=== PATIENT | male | born 1965 | race African-American/Black ===

== ENCOUNTER 2021-08-22 10:14 | Observation (INO) ==
--- NOTE | 2021-08-22 11:07 | XRay Report ---
XR chest 1V portable CLINICAL HISTORY: SOB TECHNIQUE: Single frontal radiograph of the chest was obtained. Comparison: None available at the time of this dictation. FINDINGS: No lines and tubes are seen. The cardiomediastinal silhouette is normal. The lungs are clear. No evid ence of pleural effusion or pneumothorax. IMPRESSION: No acute chest disease. ACT 112: Negative or not required by law. Electronically signed by: Chase Thao M.D. 08/22/2021 11:06 AM
[2021-08-22 11:28] LABS: Basophils # (auto) 0.02 K/uL (0-0.2); Basophils % (auto) 0.2 %; Eosinophils # (auto) 0.05 K/uL (0-0.5); Eosinophils % (auto) 0.4 %; Hematocrit (blood only) 39.1 % (42-52); Hemoglobin 13.1 g/dL (14.0-18.0); Immature Granulocytes # (auto) 0.15 K/uL (0.00-0.02); Immature Granulocytes % (auto) 1.3 %; Lymphocytes # (auto) 1.29 K/uL (1.2-3.4); Lymphocytes % (auto) 11.4 %; Mean Corpuscular Hemoglobin 28.3 pg (25-34); Mean Corpuscular Hgb Conc 33.5 g/dL (32-36); Mean Corpuscular Volume 84.4 fL (80-100); Monocytes # (auto) 0.71 K/uL (0.11-0.59); Monocytes % (auto) 6.3 %; Neutrophils # (auto) 9.06 K/uL (1.4-6.5); Neutrophils % (auto) 80.4 %; Platelet Count 8 K/uL (130-400); Platelet Estimate SIGNIFIC DECREASED (Normal); RDW Coefficient of Variation 14.5 % (11.5-14.5); RDW Standard Deviation 44.4 fL (36.4-46.3); Red Blood Count 4.63 M/uL (4.7-6.1); White Blood Count 11.28 K/uL (4.8-10.8)
[2021-08-22 11:42] LABS: Albumin Globulin Ratio 1.4 (0.9-2); BUN Creatinine Ratio 15.6 (10-20); Bilirubin,Total 0.5 mg/dl (0.2-1.0); Calcium 8.9 mg/dl (8.5-10.1); Creatinine Clr Calc Pharmacy 114.3 ml/min; Est GFR (African American) 104.2 ml/min; Est GFR (Non-African American) 89.9 ml/min; Globulin 2.8 gm/dl (2.5-4.0); Total Protein 6.8 gm/dl (6.0-8.3)
[2021-08-22] MEDS ORDERED: dexAMETHasone 4 MG TAB PO ONE (11:50)
[2021-08-22] MEDS ORDERED: diphenhydrAMINE 50 MG/ML VIAL IV STA (11:55)
[2021-08-22] MEDS ORDERED: ACETAMINOPHEN 500 MG TAB PO STA (11:55)
[2021-08-22] MEDS ORDERED: IMMUN GLOBG(IGG)/MALT/IGA OV50 100 ML IV ONE (12:00)
--- NOTE | 2021-08-22 12:40 | History & Physical Report ---
Date of Service August 22, 2021 Assessment & Plan (1) Severe thrombocytopenia: (2) Drug-induced ITP: Plan: This is a 55yo M from [facility] with PMH of HTN, HLD, mood disorder who presents to ED with low platelet count in setting of suspected ITP following J&J Vaccine in June 2021. When seen in Dec with plt of 6, heme onc recommended dexamethasone 40 mg daily x 4 days, initial improvement to platelets noted Patient well until a few days ago with bleeding of tongue noted - started on prednisone with resolution of bleeding, repeat platelets low and sent to ED Platelets today of 8, no active bleeding, hemodynamically stable ED physician discussed with Dr. Wiley of [facility] onc - patient given 40mg Decadron and 1mg/kg Immune globulin with plans to continue daily Repeat CBC in AM Hematology consult Monitor closely for bleeding (3) HTN (hypertension): Plan: Continue amlodipine, lisinopril-hctz (4) HLD (hyperlipidemia): Plan: Continue statin (5) Bipolar disorder: Plan: Continue fluoxetine, Lamictal, aripiprazole HS, benztropine HS DVT Ppx: SCDs only given severe thrombocytopenia Code status: FULL PCP: GALLO Page Dispo: Admitted to PCU Patient seen in collaboration with Dr. Marks. Please see addendum. History of Present Illness Primary Care Provider: GALLO Shorener This is a 55yo M from [facility] with PMH of HTN, HLD, mood disorder who presents to ED with low platelet count. Was seen in late June in ED with platelet count of [address] Montgomery thought it likely to be ITP from recent J&J Vaccine. Recommended dexamethasone 40 mg daily x 4 days with daily CBCs with outpatient follow-up. Improvement of platelets initially noted on labwork and patient returned to nursing home. Patient started to feel worse again on Monday and noticed his tongue was bleeding. Was started on prednisone taper at [facility] and repeat CBC showed low platelet count again, so patient sent to [facility] for further evaluation. Patient denies continued bleeding from tongue or gums since Monday. No other bleeding noted and no new bruising/petechiae. No fever, chills, CP, SOB, N/V, abdominal pain, dysuria, diarrhea or constipation. Per ED physician's discussion with Dr. Wiley, patient given 40mg Decadron and 1mg/kg Immune globulin with plans to repeat platelet count in AM. Allergies Allergy/AdvReac Type Severity Reaction Status Date / Time sulfamethoxazole Allergy Unknown Unknown Verified 07/29/21 21:13 [From Bactrim] trimethoprim [From Bactrim] Allergy Unknown Unknown Verified 07/29/21 21:13 Home Medications Medication Instructions Recorded Confirmed Type amlodipine 10 mg tablet 10 mg PO DAILY 07/29/21 08/22/21 History aripiprazole 5 mg tablet 5 mg PO HS 07/29/21 08/22/21 History benztropine 1 mg tablet 1 mg PO HS 07/29/21 08/22/21 History fluoxetine 20 mg capsule 80 mg PO DAILY 07/29/21 08/22/21 History lamotrigine 100 mg tablet 200 mg PO DAILY 07/29/21 08/22/21 History (Lamictal) levalbuterol tartrate 45 2 inh INHALATION QID PRN 07/29/21 08/22/21 History mcg/actuation aerosol inhaler (Xopenex HFA) lisinopril 20 1 tab PO DAILY 07/29/21 08/22/21 History mg-hydrochlorothiazide 25 mg tablet rosuvastatin 20 mg tablet 20 mg PO HS 07/29/21 08/22/21 History acetaminophen 500 mg tablet 1,000 mg PO TID PRN 08/22/21 08/22/21 History (Acetaminophen Extra Strength) Past Med/Surg History Medical History Bipolar disorder HLD (hyperlipidemia) HTN (hypertension) Sarcoidosis Surgical History History of lung surgery Family History Other Diabetes Heart disease Social History (Updated 08/22/21 @ 13:41 by Yoko Shelby PA-C) Smoking Status: Never smoker Current Living Situation: Other Feels Safe at Home: Yes Review of Systems Review of Systems: At least ten systems reviewed and negative except as noted in the HPI. Physical Exam Physical Exam: General Appearance: WD/WN, vitals as above, NAD, lying in bed, pleasant, conversing easily Head: normocephalic, atraumatic Eyes: normal inspection, PERRL, conjunctivae normal, anicteric sclerae ENT: external ear and nose normal, oropharynx normal - no bleeding visualized Neck: normal visual inspection, trachea midline, no thyromegaly Respiratory: normal respiratory effort, lungs clear to auscultation, no wheeze, rales, rhonchi. No accessory muscle use Cardiovascular: regular rate, rhythm, no murmur, normal peripheral pulses, trace BLE edema. Vessels: no JVD Chest: normal inspection of chest Abdomen/GI: normal bowel sounds, soft, nontender, no hepatosplenomegaly Extremities/Musculoskeletal: no cyanosis or clubbing, extremities motor strength 5/5 Neurologic: PERRL, EOMI, accommodation nl, no face palsy, no dysarthria, CN's II-XI intact bilaterally and moves all extremities Psychiatric: A+Ox3, euthymic affect Skin: no rashes or petechiae noted. Small bruise on dorsum of L hand, normal color, warm/dry Results & Data Results & Data ([facility]) Vital Signs (Past 12 Hours) Vital Signs Temp Pulse Pulse Resp BP BP Pulse Ox 08/22/21 12:00 81 22 160/93 H 99 08/22/21 10:20 36.9 C 96 H 21 141/95 H 96 Laboratory Results Short CBC 08/22/21 Range/Units 10:45 WBC 11.28 H (4.8-10.8) K/uL Hgb 13.1 L (14.0-18.0) g/dL Hct 39.1 L (42-52) % Plt Count 8 L* (130-400) K/uL BMP 08/22/21 10:45 Sodium 135 L Potassium Chloride 100 Carbon Dioxide 28 BUN 15 Creatinine 0.96 Glucose 112 H Calcium 8.9 Liver Function 08/22/21 Range/Units 10:45 Total Bilirubin 0.5 (0.2-1.0) mg/dl AST (13-39) U/L ALT 46 (7-52) U/L Alkaline Phosphatase 89 (34-104) U/L Albumin 4.0 (3.4-5.0) gm/dl Diagnostic Findings Chest X-Ray 08/22/21 10:34 XR chest 1V portable CLINICAL HISTORY: SOB TECHNIQUE: Single frontal radiograph of the chest was obtained. Comparison: None available at the time of this dictation. FINDINGS: No lines and tubes are seen. The cardiomediastinal silhouette is normal. The lungs are clear. No evidence of pleural effusion or pneumothorax. IMPRESSION: No acute chest disease. ACT 112: Negative or not required by law. Electronically signed by: Chase Thao M.D. 08/22/2021 11:06 AM Code Status & VTE Plan VTE Prophylaxis Plan VTE Prophylaxis will be ordered: Yes Supervising Physician Co-Signing Physician Notes I saw this patient with the physician assistant offset press operator, I participated in the history, physical, review of systems, and physical exam. I reviewed the medications with the patient and the physician assistant offset press operator and helped reconcile the medications. I helped take a detailed family and social history as well. I formulated the assessment and plan personally with the physician assistant offset press operator and went over it with the patient. ROS-No Headache, No Visual Changes, No Nausea, No Vomiting, No Fever, No Chills, No Neck Pain or Stiffness, No Chest Pain, No Palpitations, No SOB, No HOLDER, No Cough, No Sputum, No Wheezing, No Abdominal Pain, No Diarrhea, No Hematemesis, No Hemoptysis, No Unexpected Weight Loss, No Flank pain, No Melena, No Hematochezia, No Frequency, No Urgency, No Burning, No Hematuria, No Rashes, No Diaphoresis. Appetite is Normal Physical Exam Gen-AAO x 3, NAD, Afebrile Head-NCAT, EOMI, PERRLA, Anicteric Sclera, No Posterior Pharyngeal Erythema Neck-Supple, No JVD, No Thyromegaly, No Masses, No LAD, No Bruits Lungs-Clear to Auscultation Bilaterally, No Rales, No Rhonchi, No Wheezing, No Crepitus Chest-No S4, +S1, +S2, No S3, No Murmurs, No Rubs, No Gallops, No Ectopy Abdomen-Soft, Bowel Sounds Present, Non Tender, Non Distended, No Hepatomegaly, No Splenomegaly, No Palpable Masses, No Rebound, No Rigidity, No Guarding Musculoskeletal-Full Range of Motion Bilaterally, No CVAT Extremities-No Cyanosis, No Clubbing, No Edema Nuero-Cranial Nerves II-XII grossly intact, Motor WNL, DTRs WNL, Strength WNL, Non Focal Psych-Normal Mood
[2021-08-22] MEDS: IMMUN GLOBG(IGG)/MALT/IGA OV50 200 ML IV SCH ×4 (14:04→23:11)
[2021-08-22] MEDS ORDERED: ACETAMINOPHEN 325 MG TAB PO PRN (15:16)
[2021-08-22] MEDS ORDERED: ONDANSETRON INJ 2 MG/ML 2 ML VIAL IV PRN (15:16)
[2021-08-22] MEDS ORDERED: POLYETHYLENE (MIRALAX) 17 GM PACK PO PRN (15:16)
--- NOTE | 2021-08-22 17:32 | Emergency Department Note ---
Impression & Plan Severe thrombocytopenia, History of ITP ED Provider Note CHIEF COMPLAINT: low plts HISTORY OF PRESENT ILLNESS: This 55 yo male patient [facility] with complaints of low platelets. Patient was recently diagnosed with thrombocytopenia and placed high-dose steroids. His initial platelet count was 6 and on repeat after high-dose dexamethasone was 61. [facility] of p.o. dexamethasone but is sent back to the emergency department today for a platelet count of 9. Patient states he has been bruising but has had no significant bleeding. In review of the patient's medication list he has been taking 40 mg of prednisone daily through their system. Patient states he had a Covid booster prior to the onset of the symptoms and it is unclear if this is related to the thrombocytopenia. He has never had issues with this previously. He denies any fevers, bleeding from the gums, rectal bleeding, vomiting, shortness of breath or chest discomfort. REVIEW OF SYSTEMS: A review of systems was performed with positives and pertinent negatives listed in the history of present illness. 10 systems were reviewed and are otherwise negative. ALLERGIES: see below MEDICATIONS: see below PMH: see below SOCIAL HISTORY: see below DDx: ITP, TTP, medication effect, viral illness, malignancy, amongst others. PHYSICAL EXAM: Vital signs reviewed. General: Well-appearing 55-year-old -[place] male, in no significant distress. HEENT: No scleral icterus, PERRLA, neck supple. Atraumatic. Cardiovascular: Regular rate and rhythm, no extra sounds. Pulmonary: Clear to auscultation bilaterally, normal work of breathing. Abdomen: Soft, nontender, nondistended, positive bowel sounds. Musculoskeletal: Atraumatic, no peripheral edema. Neurologic: Patient awake alert and oriented x 3, speech is clear Skin: Warm, dry, superficial areas of bruising to the extremities, otherwise no rash EMERGENCY DEPARTMENT COURSE/MDM: Patient was evaluated and appeared to be in no significant distress. IV access was obtained and laboratory work was drawn. Patient was confirmed to be thrombocytopenic. [facility] were [facility] indicating that the steroids have been switched from dexamethasone to prednisone at the 40 mg dosing. I did discuss the findings with oncology who had recommended giving the p.o. dexamethasone and weight-based IVIG. Pharmacy was consulted. Internal medicine service was also consulted who agreed to evaluate patient for admission and further management. Patient is aware of plan and agrees. MONITORING: An order for cardiac monitoring was placed and the patient is noted to be in a normal sinus rhythm at 93 beats per minute. RADIOLOGY: See below EKG: Normal sinus rhythm at 92 bpm. QTC of 420, normal axis, no PVC, no PAC, normal ST segments. No change was found when compared to 07/29/2021. DISPOSITION: Admission Past Med/Surg History Medical History Bipolar disorder HLD (hyperlipidemia) HTN (hypertension) Sarcoidosis Surgical History History of lung surgery Family History Other Diabetes Heart disease Social History Smoking Status: Never smoker Hx Alcohol Use: No Hx Substance Use: No Preferred Language: Micronesian Communication Ability: Effective Acid Treater Required: No Beliefs That Will Affect Care: None Current Living Situation: Other Feels Safe at Home: Yes Safety Concerns: Feels Safe At This Time Assistive Devices: None Allergies Allergies Allergy/AdvReac Type Severity Reaction Status Date / Time sulfamethoxazole Allergy Unknown Unknown Verified 07/29/21 21:13 [From Bactrim] trimethoprim [From Bactrim] Allergy Unknown Unknown Verified 07/29/21 21:13 Home Meds Home Medications Medication Instructions Recorded Confirmed amlodipine 10 mg tablet 10 mg PO DAILY 07/29/21 08/22/21 aripiprazole 5 mg tablet 5 mg PO HS 07/29/21 08/22/21 benztropine 1 mg tablet 1 mg PO HS 07/29/21 08/22/21 fluoxetine 20 mg capsule 80 mg PO DAILY 07/29/21 08/22/21 lamotrigine 100 mg tablet 200 mg PO DAILY 07/29/21 08/22/21 (Lamictal) levalbuterol tartrate 45 2 inh INHALATION QID PRN 07/29/21 08/22/21 mcg/actuation aerosol inhaler (Xopenex HFA) rosuvastatin 20 mg tablet 20 mg PO HS 07/29/21 08/22/21 acetaminophen 500 mg tablet 1,000 mg PO TID PRN 08/22/21 08/22/21 (Acetaminophen Extra Strength) Previous Rx's Medication Instructions Recorded amlodipine 5 mg tablet (Norvasc) 10 mg PO QAM #60 tab 08/24/21 dexamethasone 4 mg tablet 40 mg PO DAILY #3 tab 08/24/21 lisinopril 20 mg tablet 20 mg PO DAILY #30 tab 08/24/21 rosuvastatin 20 mg tablet (Crestor) 20 mg PO QAM #30 tab 08/24/21 Results & Data (ED) Vital Signs Vital Signs - 24 hr 08/22/21 10:20 08/22/21 12:00 Temperature 36.9 C Temperature Source Oral Pulse Rate 96 H Pulse Rate [Left Apical] 81 Pulse Rhythm Regular Pulse Rhythm [Left Apical] Regular Pulse Strength Normal Pulse Strength [Left Apical] Normal Respiratory Rate 21 22 Respiratory Effort / Characteristics Non-Labored Spontaneous Non-Labored Spontaneous Respiratory Depth Normal Normal Respiratory Pattern Regular Regular Blood Pressure 141/95 H Blood Pressure [Left Arm] 160/93 H Blood Pressure Mean 110 Blood Pressure Mean [Left Arm] 115 Blood Pressure Position Lying Blood Pressure Position [Left Arm] Lying Pulse Oximetry 96 99 Oxygen Delivery Method Room Air Room Air Sepsis Recent Fever Within 48 Hours No Sepsis New/Unexplained Change in Mental Status N/A Sepsis Action Taken by Nursing No Action Required Home Medications Current Medication List: was personally reviewed by me Laboratory Data Attestation: I reviewed the patient's lab results. Result diagrams: 08/24/21 06:14 08/24/21 06:14 Lab Results 08/22/21 08/22/21 08/22/21 Range/Units 10:45 10:45 10:45 WBC 11.28 H (4.8-10.8) K/uL RBC 4.63 L (4.7-6.1) M/uL Hgb 13.1 L (14.0-18.0) g/dL Hct 39.1 L (42-52) % MCV 84.4 (80-100) fL MCH 28.3 (25-34) pg MCHC 33.5 (32-36) g/dL RDW Std Deviation 44.4 (36.4-46.3) fL RDW Coeff of Dianelys 14.5 (11.5-14.5) % Plt Count 8 L* (130-400) K/uL Immature Gran % (Auto) 1.3 % Neut % (Auto) 80.4 % Lymph % (Auto) 11.4 % [place] % (Auto) 6.3 % Eos % (Auto) 0.4 % Baso % (Auto) 0.2 % Neut # (Auto) 9.06 H (1.4-6.5) K/uL Lymph # (Auto) 1.29 (1.2-3.4) K/uL [place] # (Auto) 0.71 H (0.11-0.59) K/uL Eos # (Auto) 0.05 (0-0.5) K/uL Baso # (Auto) 0.02 (0-0.2) K/uL Immature Gran # (Auto) 0.15 H (0.00-0.02) K/uL Platelet Estimate SIGNIFIC DECREASED (Normal) Sodium 135 L (136-145) mmol/L Potassium (3.5-5.1) mmol/L Chloride 100 (98-107) mmol/L Carbon Dioxide 28 (21-32) mmol/L Anion Gap 7 (3-11) BUN 15 (6-23) mg/dl Creatinine 0.96 (0.6-1.4) mg/dl Est Cr Clr Drug Dosing 114.3 ml/min Est GFR ( Amer) 104.2 ml/min Est GFR (Non-Af Amer) 89.9 ml/min BUN/Creatinine Ratio 15.6 (10-20) Glucose 112 H (70-99(Fasting)) mg/dl Calcium 8.9 (8.5-10.1) mg/dl Total Bilirubin 0.5 (0.2-1.0) mg/dl AST (13-39) U/L ALT 46 (7-52) U/L Alkaline Phosphatase 89 (34-104) U/L Total Protein 6.8 (6.0-8.3) gm/dl Albumin 4.0 (3.4-5.0) gm/dl Globulin 2.8 (2.5-4.0) gm/dl Albumin/Globulin Ratio 1.4 (0.9-2) SARS-CoV-2, RNA, NAAT NEGATIVE (NEGATIVE) Blood Type Antibody Screen 08/22/21 08/22/21 Range/Units 11:13 11:59 WBC (4.8-10.8) K/uL RBC (4.7-6.1) M/uL Hgb (14.0-18.0) g/dL Hct (42-52) % MCV (80-100) fL MCH (25-34) pg MCHC (32-36) g/dL RDW Std Deviation (36.4-46.3) fL RDW Coeff of Dianelys (11.5-14.5) % Plt Count (130-400) K/uL Immature Gran % (Auto) % Neut % (Auto) % Lymph % (Auto) % [place] % (Auto) % Eos % (Auto) % Baso % (Auto) % Neut # (Auto) (1.4-6.5) K/uL Lymph # (Auto) (1.2-3.4) K/uL [place] # (Auto) (0.11-0.59) K/uL Eos # (Auto) (0-0.5) K/uL Baso # (Auto) (0-0.2) K/uL Immature Gran # (Auto) (0.00-0.02) K/uL Platelet Estimate (Normal) Sodium (136-145) mmol/L Potassium 5.0 (3.5-5.1) mmol/L Chloride (98-107) mmol/L Carbon Dioxide (21-32) mmol/L Anion Gap (3-11) BUN (6-23) mg/dl Creatinine (0.6-1.4) mg/dl Est Cr Clr Drug Dosing ml/min Est GFR ( Amer) ml/min Est GFR (Non-Af Amer) ml/min BUN/Creatinine Ratio (10-20) Glucose (70-99(Fasting)) mg/dl Calcium (8.5-10.1) mg/dl Total Bilirubin (0.2-1.0) mg/dl AST 21 (13-39) U/L ALT (7-52) U/L Alkaline Phosphatase (34-104) U/L Total Protein (6.0-8.3) gm/dl Albumin (3.4-5.0) gm/dl Globulin (2.5-4.0) gm/dl Albumin/Globulin Ratio (0.9-2) SARS-CoV-2, RNA, NAAT (NEGATIVE) Blood Type A Negative Antibody Screen NEGATIVE Administered Medications Discontinued Medications Acetaminophen (Acetaminophen 500 Mg Tab) 1,000 mg PO NOW STA Stop: 08/22/21 11:56 Last Admin: 08/22/21 12:17 Dose: 1,000 mg Documented by: [id number] Acetaminophen (Acetaminophen 325 Mg Tab) 650 mg PO Q4H PRN PRN Reason: Pain or Fever Stop: 09/21/21 15:15 Last Admin: 08/24/21 06:31 Dose: 650 mg Documented by: [id number] Amlodipine Besylate (Amlodipine Besylate 5 Mg Tab) 10 mg PO [facility] Stop: 09/22/21 10:29 Last Admin: 08/24/21 08:10 Dose: 10 mg Documented by: [id number] Admin: 08/23/21 11:30 Dose: 10 mg Documented by: [id number] Aripiprazole (Aripiprazole 5 Mg Tab) 5 mg PO [facility] Stop: 09/22/21 10:29 Last Admin: 08/24/21 08:09 Dose: Not Given Documented by: [id number] Admin: 08/23/21 11:30 Dose: Not Given Documented by: [id number] Benztropine Mesylate (Benztropine Mesylate 1 Mg Tab) 1 mg PO [facility] Stop: 09/22/21 20:59 Last Admin: 08/23/21 21:01 Dose: 1 mg Documented by: [id number] Dexamethasone (Dexamethasone 4 Mg Tab) 40 mg PO NOW ONE Stop: 08/22/21 11:51 Last Admin: 08/22/21 12:17 Dose: 40 mg Documented by: [id number] Dexamethasone (Dexamethasone 4 Mg Tab) 40 mg PO DAILY [facility] Stop: 09/22/21 08:59 Last Admin: 08/24/21 08:10 Dose: 40 mg Documented by: [id number] Admin: 08/23/21 08:59 Dose: 40 mg Documented by: [id number] Diphenhydramine HCl (Diphenhydramine 50 Mg/Ml Vial) 25 mg IV NOW STA Stop: 08/22/21 11:56 Last Admin: 08/22/21 12:17 Dose: 25 mg Documented by: [id number] Fluoxetine HCl (Fluoxetine Hcl 20 Mg/5 Ml Udp) [facility] Stop: 09/22/21 10:29 Last Admin: 08/23/21 18:26 Dose: Not Given Documented by: [id number] Fluoxetine HCl (Fluoxetine Hcl 20 Mg/5 Ml 120ml Btl) [facility] Stop: 09/22/21 10:44 Last Admin: 08/24/21 08:14 Dose: 80 mg Documented by: [id number] Admin: 08/23/21 11:30 Dose: 80 mg Documented by: [id number] Lisinopril/HCTZ (Lisinopril/Hctz 10/12.5mg Tab) 1 tab PO QAM SIRIA Stop: 09/22/21 10:29 Last Admin: 08/24/21 08:11 Dose: 1 tab Documented by: [id number] Admin: 08/23/21 11:31 Dose: 1 tab Documented by: [id number] Immune Globulin (Octagam 10%) 200 mls @ 68.4 mls/hr IV Q1H SIRIA; Protocol Stop: 08/22/21 17:59 Last Titration: 08/23/21 04:04 Dose: 0 mg/kg/min, 0 mls/hr Documented by: [id number] Admin: 08/23/21 02:01 Dose: 1.46 mg/kg/min, 100 mls/hr Documented by: [id number] Titration: 08/23/21 01:11 Dose: 1.46 mg/kg/min, 100 mls/hr Documented by: [id number] Admin: 08/22/21 23:11 Dose: 1.46 mg/kg/min, 100 mls/hr Documented by: [id number] Titration: 08/22/21 23:11 Dose: 0 mg/kg/min, 0 mls/hr Documented by: [id number] Admin: 08/22/21 19:48 Dose: 1.46 mg/kg/min, 100 mls/hr Documented by: [id number] Titration: 08/22/21 19:47 Dose: 0 mg/kg/min, 0 mls/hr Documented by: [id number] Admin: 08/22/21 16:27 Dose: 1.46 mg/kg/min, 100 mls/hr Documented by: [id number] Titration: 08/22/21 16:04 Dose: 1.46 mg/kg/min, 100 mls/hr Documented by: [id number] Admin: 08/22/21 14:04 Dose: 1.46 mg/kg/min, 100 mls/hr Documented by: [id number] Immune Globulin (Octagam 10%) 100 mls @ 68.4 mls/hr IV NOW ONE; Protocol Stop: 08/22/21 13:27 Last Titration: 08/22/21 14:05 Dose: 0 mg/kg/min, 0 mls/hr Documented by: [id number] Admin: 08/22/21 12:53 Dose: 1 mg/kg/min, 68.4 mls/hr Documented by: [id number] Immune Globulin (Octagam 10%) 100 mls @ 65.4 mls/hr IV TODAY@1600 SIRIA; Protocol Stop: 08/23/21 17:32 Last Titration: 08/23/21 18:26 Dose: 0 mg/kg/min, 0 mls/hr Documented by: [id number] Admin: 08/23/21 16:39 Dose: 1 mg/kg/min, 65.4 mls/hr Documented by: [id number] Immune Globulin (Octagam 10%) 200 mls @ 65.4 mls/hr IV Q1H SIRIA; Protocol Stop: 08/23/21 21:59 Last Titration: 08/23/21 23:29 Dose: 0 mg/kg/min, 0 mls/hr Documented by: [id number] Admin: 08/23/21 22:30 Dose: 3.82 mg/kg/min, 250 mls/hr Documented by: [id number] Titration: 08/23/21 21:48 Dose: 3.82 mg/kg/min, 250 mls/hr Documented by: [id number] Admin: 08/23/21 21:00 Dose: 3.82 mg/kg/min, 250 mls/hr Documented by: [id number] Titration: 08/23/21 20:29 Dose: 0 mg/kg/min, 0 mls/hr Documented by: [id number] Admin: 08/23/21 19:40 Dose: 3.82 mg/kg/min, 250 mls/hr Documented by: [id number] Titration: 08/23/21 19:20 Dose: 0 mg/kg/min, 0 mls/hr Documented by: [id number] Admin: 08/23/21 18:30 Dose: 3.82 mg/kg/min, 250 mls/hr Documented by: [id number] Titration: 08/23/21 18:30 Dose: 1 mg/kg/min, 65.4 mls/hr Documented by: [id number] Admin: 08/23/21 17:15 Dose: 1 mg/kg/min, 65.4 mls/hr Documented by: [id number] Lamotrigine (Lamotrigine 100 Mg Tab) 200 mg PO [facility] Stop: 09/22/21 10:29 Last Admin: 08/24/21 08:12 Dose: 200 mg Documented by: [id number] Admin: 08/23/21 11:30 Dose: 200 mg Documented by: [id number] Rosuvastatin Calcium (Rosuvastatin Calcium 20 Mg Tab) 20 mg PO [facility] Stop: 09/22/21 10:29 Last Admin: 08/24/21 08:11 Dose: 20 mg Documented by: [id number] Admin: 08/23/21 11:31 Dose: 20 mg Documented by: [id number] Imaging Data Radiologist's Impression: Chest X-Ray 08/22/21 10:34 XR chest 1V portable CLINICAL HISTORY: SOB TECHNIQUE: Single frontal radiograph of the chest was obtained. Comparison: None available at the time of this dictation. FINDINGS: No lines and tubes are seen. The cardiomediastinal silhouette is normal. The lungs are clear. No evidence of pleural effusion or pneumothorax. IMPRESSION: No acute chest disease. ACT 112: Negative or not required by law. Electronically signed by: Chase Thao M.D. 08/22/2021 11:06 AM Blood Pressure Blood Pressure Findings: Elevated blood pressure Blood Pressure Disposition: further management by hospitalist Discharge Plan Visit Data Chief Complaint: Abnormal Labs/Diagnostic Testing Stated Complaint: ABNORMAL LABS ED Provider: Ely Sr Discharge Problem: Severe thrombocytopenia, History of ITP Patient Disposition: Admitted As Inpatient Condition: Good Discharge Instructions Interventions: ED Discharge Assessment Last Done: 08/22/21 15:28
[2021-08-23] MEDS: IMMUN GLOBG(IGG)/MALT/IGA OV50 200 ML IV SCH ×6 (02:01→22:30)
[2021-08-23 07:29] LABS: Hematocrit (blood only) 39.4 % (42-52); Hemoglobin 13.1 g/dL (14.0-18.0); Mean Corpuscular Hemoglobin 28.2 pg (25-34); Mean Corpuscular Hgb Conc 33.2 g/dL (32-36); Mean Corpuscular Volume 84.7 fL (80-100); Mean Platelet Volume 10.9 fL (7.4-10.4); Platelet Count 62 K/uL (130-400); Platelet Estimate Decreased (Normal); RDW Coefficient of Variation 14.5 % (11.5-14.5); RDW Standard Deviation 44.8 fL (36.4-46.3); Red Blood Count 4.65 M/uL (4.7-6.1); White Blood Count 13.91 K/uL (4.8-10.8)
[2021-08-23 07:33] LABS: BUN Creatinine Ratio 23.3 (10-20); Calcium 8.5 mg/dl (8.5-10.1); Creatinine Clr Calc Pharmacy 119.2 ml/min; Est GFR (African American) 112.6 ml/min; Est GFR (Non-African American) 97.2 ml/min; Potassium 4.2 mmol/L (3.5-5.1)
[2021-08-23] MEDS: dexAMETHasone 4 MG TAB PO SCH (08:59)
--- NOTE | 2021-08-23 10:05 | Hospitalist Progress Note ---
Date of Service August 23, 2021 Assessment & Plan (1) Severe thrombocytopenia: (2) Drug-induced ITP: Plan: This is a 55yo M from [place] [facility] with PMH of HTN, HLD, mood disorder who presents to ED with low platelet count in setting of suspected ITP following J&J Vaccine in June 2021. When seen in Dec with plt of 6, [facility] onc recommended dexamethasone 40 mg daily x 4 days, initial improvement to platelets noted Patient well until a few days ago with bleeding of tongue noted - started on prednisone with resolution of bleeding, repeat platelets low and sent to ED Platelets today of 8, no active bleeding, hemodynamically stable ED physician discussed with Dr. Wiley of [facility] onc - patient given 40mg Decadron and 1mg/kg Immune globulin, continue daily Hematology consult Monitor closely for bleeding (3) HTN (hypertension): Plan: Continue amlodipine, lisinopril-hctz (4) HLD (hyperlipidemia): Plan: Continue statin (5) Bipolar disorder: Plan: Continue fluoxetine, Lamictal, aripiprazole HS, benztropine HS DVT Ppx: SCDs only given severe thrombocytopenia Code status: FULL PCP: [facility] Page Dispo: Admitted to PCU ROS-No Headache, No Visual Changes, No Nausea, No Vomiting, No Fever, No Chills, No Neck Pain or Stiffness, No Chest Pain, No Palpitations, No SOB, No HOLDER, No Cough, No Sputum, No Wheezing, No Abdominal Pain, No Diarrhea, No Hematemesis, No Hemoptysis, No Unexpected Weight Loss, No Flank pain, No Melena, No Hematochezia, No Frequency, No Urgency, No Burning, No Hematuria, No Rashes, No Diaphoresis. Appetite is Normal Physical Exam Gen-AAO x 3, NAD, Afebrile Head-NCAT, EOMI, PERRLA, Anicteric Sclera, No Posterior Pharyngeal Erythema Neck-Supple, No JVD, No Thyromegaly, No Masses, No LAD, No Bruits Lungs-Clear to Auscultation Bilaterally, No Rales, No Rhonchi, No Wheezing, No Crepitus Chest-No S4, +S1, +S2, No S3, No Murmurs, No Rubs, No Gallops, No Ectopy Abdomen-Soft, Bowel Sounds Present, Non Tender, Non Distended, No Hepatomegaly, No Splenomegaly, No Palpable Masses, No Rebound, No Rigidity, No Guarding Musculoskeletal-Full Range of Motion Bilaterally, No CVAT Extremities-No Cyanosis, No Clubbing, No Edema Nuero-Cranial Nerves II-XII grossly intact, Motor WNL, DTRs WNL, Strength WNL, Non Focal Psych-Normal Mood. Admission and Anticipated Discharge Date Admission Date: August 22, 2021 Results & Data Results & Data ([facility]) Vital Signs (Past 12 Hours) Vital Signs Temp Pulse Pulse Resp BP Pulse Ox 08/23/21 08:05 36.7 C 94 H 16 166/89 H 97 08/23/21 04:01 36.6 C 86 18 150/86 H 97 08/22/21 23:49 36.4 C L 74 18 153/96 H 98 08/22/21 23:31 80 Laboratory Results Reviewed
[2021-08-23] MEDS: FLUoxetine HCL 20 MG/5 ML 120ML BTL PO SCH (11:30)
[2021-08-23] MEDS: amLODIPine BESYLATE 5 MG TAB PO SCH (11:30)
[2021-08-23] MEDS: lamoTRIgine 100 MG TAB PO SCH (11:30)
[2021-08-23] MEDS: ARIPiprazole 5 MG TAB PO SCH (11:30)
[2021-08-23] MEDS: LISINOPRIL/HCTZ 10/12.5MG TAB PO SCH (11:31)
[2021-08-23] MEDS: ROSUVASTATIN CALCIUM 20 MG TAB PO SCH (11:31)
[2021-08-23] MEDS ORDERED: IMMUNE GLOBULIN (HUMAN) SOLN IV ONE (14:20)
[2021-08-23] MEDS ORDERED: IMMUN GLOBG(IGG)/MALT/IGA OV50 100 ML IV SCH ×2 (15:00→16:00)
--- NOTE | 2021-08-23 15:08 | Consultation Report ---
HEMATOLOGY CONSULTATION DATE OF SERVICE: 08/23/2021. REASON FOR CONSULTATION: ITP. HISTORY OF PRESENT ILLNESS: This very pleasant 55-year-old -[place] skilled nursing inmate from [place] was admitted to [facility] on 08/22/2021 with platelet count of 8000. This g entleman was in our emergency room on basically for the same issue. The ER doctor had a telephone consulted us and recommended the gentleman receive high-dose dexamethasone, which was ad ministered. Apparently response was transient and thus was readmitted after he presented with scatte red ecchymosis and petechiae. Specifically on the Monday before admission noticed his tongue was blee ding, was started on prednisone taper at [facility] and repeat CBC revealed platelet count of 6000 . He was then subsequently transferred to our emergency room where platelet count had risen to 8000. The ER physician contacted my partner, Dr. Wiley who recommended daily dexamethasone and IVIG. His platelet count has responded nicely [id number]. The patient himself is anxious to return to skilled nursing and o ffers no complaints or concerns otherwise. He has a few scattered small ecchymoses that he showed me during today's consultation. PAST MEDICAL HISTORY: Significant for bipolar disorder, hyperlipidemia, hypertension, and sarcoidosi s. PAST SURGICAL HISTORY: Includes pulmonary surgery. MEDICATIONS: Include amlodipine 10 mg p.o. daily, aripiprazole 5 mg p.o. at bedtime, benztropine 1 m g p.o. at bedtime, fluoxetine 80 mg p.o. daily, Lamictal 200 mg p.o. daily, levalbuterol tartrate 2 i nhalations q.i.d. p.r.n., lisinopril/hydrochlorothiazide 1 tablet p.o. daily, rosuvastatin 20 mg p.o. daily. ALLERGIES: BACTRIM. SOCIAL HISTORY: The patient is a skilled nursing inmate at [facility]. He is a nonsmoker. FAMILY HISTORY: Positive for diabetes and heart disease. REVIEW OF SYSTEMS: All systems negative as stated in the HPI. PHYSICAL EXAMINATION: GENERAL: Very pleasant 55-year-old -[place] gentleman in no acute distress. VITAL SIGNS: Temperature 36.6, pulse 93, respiratory rate 18, blood pressure 154/82. SKIN: Warm, dry, noncyanotic. He has got a few scattered ecchymoses, mainly involving his upper ext remities. HEENT: Atraumatic, normocephalic. Eyes: PERRLA. Nares patent without rhinorrhea or discharge. Th roat clear. Tongue is midline. Mucous membranes are moist. NECK: Supple. HEART: Regular rate and rhythm. No clicks, rubs, murmurs or gallops. LUNGS: Clear to auscultation bilaterally. ABDOMEN: Soft, nontender, nondistended. EXTREMITIES: No clubbing, cyanosis or edema. NEUROLOGIC: He is awake, alert and oriented x3. Grossly intact otherwise. LABORATORY DATA: WBC count 13,910, hemoglobin 13.1, platelet count 62,000. IMPRESSION: 1. Idiopathic thrombocytopenic purpura. 2. Hypertension by history. 3. Bipolar disorder. PLAN: I have been asked by the [facility] to consult on the patient and low platelets. C kodyly, he has transiently responded to high-dose dexamethasone be it brief as he re-presented roughl y 3 weeks later with a relapsed ITP. Platelet count 8000 on presentation. I agree with Dr. Wiley's recommendations to proceed with high-dose dexamethasone 40 mg p.o. daily for 4 days. I also asked Dr Marisa Marks to order an additional dose of IVIG to provide before discharge. I would like the patient to be scheduled for either myself or Dr. Wiley for followup in three to four weeks post-discharge. ITP in adults is generally refractory and perhaps he may require either oral thrombopoietin agents or rituximab in the future should he relapse. Seems to be tolerating therapy reasonably well and thus do not anticipate any issues. I am cautiously optimistic platelet count is 62,000, should be over 100 ,000 if he continues to respond in the next 24 hours. Thank you very much for allowing me to participate in his care. If you have any questions or concern s, please feel free to contact me at any time. Job ID: [id number]
[2021-08-23] MEDS ORDERED: IMMUN GLOBG(IGG)/MALT/IGA OV50 200 ML IV SCH (16:00)
--- NOTE | 2021-08-23 16:10 | Electrocardiogram Report ---
Test Reason : Blood Pressure : / mmHG Vent. Rate : 092 BPM Atrial Rate : 092 BPM P-R Int : 162 ms QRS Dur : 076 ms QT Int : 340 ms P-R-T Axes : 036 -17 014 degrees QTc Int : 420 ms Poor data quality, interpretation may be adversely affected Normal sinus rhythm Minimal voltage criteria for LVH, may be normal variant Borderline ECG When compared with ECG of 29-JUL-2021 21:00, No significant change was found Confirmed by Aime Mittal ([id number]) on 08/23/2021 4:09:49 PM Referred By: Kaylee HOLDER Confirmed By:Jason Mittal
[2021-08-23] MEDS ORDERED: BENZTROPINE MESYLATE 1 MG TAB PO SCH (21:00)
[2021-08-24 07:03] LABS: Hematocrit (blood only) 37.4 % (42-52); Hemoglobin 12.6 g/dL (14.0-18.0); Mean Corpuscular Hemoglobin 28.4 pg (25-34); Mean Corpuscular Hgb Conc 33.7 g/dL (32-36); Mean Corpuscular Volume 84.2 fL (80-100); Mean Platelet Volume 9.7 fL (7.4-10.4); Platelet Count 149 K/uL (130-400); RDW Coefficient of Variation 14.7 % (11.5-14.5); RDW Standard Deviation 45.6 fL (36.4-46.3); Red Blood Count 4.44 M/uL (4.7-6.1)
[2021-08-24 07:16] LABS: BUN Creatinine Ratio 28.4 (10-20); Calcium 8.9 mg/dl (8.5-10.1); Creatinine Clr Calc Pharmacy 120.4 ml/min; Est GFR (African American) 113.7 ml/min; Est GFR (Non-African American) 98.1 ml/min; Potassium 4.8 mmol/L (3.5-5.1)
[2021-08-24 07:27] LABS: Basophils # (auto) 0.01 K/uL (0-0.2); Basophils % (auto) 0.1 %; Immature Granulocytes # (auto) 0.13 K/uL (0.00-0.02); Immature Granulocytes % (auto) 0.7 %; Lymphocytes # (auto) 0.62 K/uL (1.2-3.4); Lymphocytes % (auto) 3.4 %; Monocytes # (auto) 0.97 K/uL (0.11-0.59); Monocytes % (auto) 5.3 %; Neutrophils # (auto) 16.57 K/uL (1.4-6.5); Neutrophils % (auto) 90.5 %; Platelet Estimate Decreased (Normal); Polychromasia 1+; Toxic Granulation 1+; Toxic Vacuolation 1+
[2021-08-24] MEDS: ARIPiprazole 5 MG TAB PO SCH (08:09)
[2021-08-24] MEDS: dexAMETHasone 4 MG TAB PO SCH (08:10)
[2021-08-24] MEDS: amLODIPine BESYLATE 5 MG TAB PO SCH (08:10)
[2021-08-24] MEDS: ROSUVASTATIN CALCIUM 20 MG TAB PO SCH (08:11)
[2021-08-24] MEDS: LISINOPRIL/HCTZ 10/12.5MG TAB PO SCH (08:11)
[2021-08-24] MEDS: lamoTRIgine 100 MG TAB PO SCH (08:12)
[2021-08-24] MEDS: FLUoxetine HCL 20 MG/5 ML 120ML BTL PO SCH (08:14)
--- NOTE | 2021-08-24 10:28 | Discharge Summary ---
Date of Service August 24, 2021 Admission HPI Per Admitting Provider This is a 55yo M from [facility] [place] with PMH of HTN, HLD, mood disorder who presents to ED with low platelet count. Was seen in late June in ED with platelet count of [address] Montgomery thought it likely to be ITP from recent J&J Vaccine. Recommended dexamethasone 40 mg daily x 4 days with daily CBCs with outpatient follow-up. Improvement of platelets initially noted on labwork and patient returned to residential. Patient started to feel worse again on Monday and noticed his tongue was bleeding. Was started on prednisone taper at [facility] and repeat CBC showed low platelet count again, so patient sent to [facility] for fu rther evaluation. Patient denies continued bleeding from tongue or gums since Monday. No other bleeding noted and no new bruising/petechiae. No fever, chills, CP, SOB, N/V, abdominal pain, dysuria, diarrhea or constipation. Per ED physician's discussion with Dr. Wiley, patient given 40mg Decadron and 1mg/kg Immune globulin with plans to repeat platelet count in AM. Admission Exam Per Admitting Provider General Appearance:WD/WN, vitals as above, NAD, lying in bed, pleasant, conversing easily Head: normocephalic, atraumatic Eyes:normal inspection, PERRL, conjunctivae normal, anicteric sclerae ENT: external ear and nose normal, oropharynx normal - no bleeding visualized Neck: normal visual inspection, trachea midline, no thyromegaly Respiratory:normal respiratory effort, lungs clear to auscultation, no wheeze, rales, rhonchi. No accessory muscle use Cardiovascular: regular rate, rhythm, no murmur, normal peripheral pulses, trace BLE edema. Vessels: no JVD Chest: normal inspection of chest Abdomen/GI: normal bowel sounds, soft, nontender, no hepatosplenomegaly Extremities/Musculoskeletal: no cyanosis or clubbing, extremities motor strength 5/5 Neurologic: PERRL, EOMI, accommodation nl, no face palsy, no dysarthria, CN's II-XI intact bilaterally and moves all extremities Psychiatric:A+Ox3, euthymic affect Skin: no rashes or petechiae noted. Small bruise on dorsum of L hand, normal color, warm/dry Principal Diagnosis (1) Severe thrombocytopenia: (2) Drug-induced ITP: (3) HTN (hypertension): (4) HLD (hyperlipidemia): (5) Bipolar disorder: Discharge Exam See below Discharge Data Allergies Allergy/AdvReac Type Severity Reaction Status Date / Time sulfamethoxazole Allergy Unknown Unknown Verified 07/29/21 21:13 [From Bactrim] trimethoprim [From Bactrim] Allergy Unknown Unknown Verified 07/29/21 21:13 Consultations 08/22/21 12:15 ED Decision to Admit Stat 08/22/21 12:46 Consult Hematology Routine Current Diagnoses Other secondary thrombocytopenia (08/22/21) Thrombocytopenia, unspecified (08/22/21) Hyperlipidemia, unspecified (08/22/21) Bipolar disorder, unspecified (08/22/21) Essential (primary) hypertension (08/22/21) Adverse effect of unspecified drugs, medicaments and biological substances, initial encounter (08/22/21) Allergies sulfamethoxazole [From Bactrim] Allergy (Unknown, Verified 07/29/21 21:13) Unknown trimethoprim [From Bactrim] Allergy (Unknown, Verified 07/29/21 21:13) Unknown Height/Weight/Isolation Height 5 ft 11 in Weight 106.3 kg Chemistry 08/22/21 08/22/21 08/23/21 10:45 11:59 06:45 Sodium 135 L 131 L Potassium 5.0 4.2 Chloride 100 97 L Carbon Dioxide 28 28 Anion Gap 7 6 BUN 15 21 Creatinine 0.96 0.90 Glucose 112 H 118 H 08/24/21 06:14 Sodium 129 L Potassium 4.8 Chloride 98 Carbon Dioxide 28 Anion Gap 3 BUN 25 H Creatinine 0.88 Glucose 114 H Hospital Course (1) Severe thrombocytopenia: (2) Drug-induced ITP: This is a 55yo M from [facility] with PMH of HTN, HLD, mood disorder who presents to ED with low platelet count in setting of suspected ITP following J&J Vaccine in June 2021. When seen in Dec with plt of 6, heme onc recommended dexamethasone 40 mg daily x 4 days, initial improvement to platelets noted Patient well until a few days ago with bleeding of tongue noted - started on prednisone with resolution of bleeding, repeat platelets low and sent to ED Platelets today of 8, no active bleeding, hemodynamically stable ED physician discussed with Dr. Wiley of heme onc - patient given 40mg Decadron and 1mg/kg Immune globulin, continue daily Hematology wants to see the patient in 1 or 2 months platelets up to 149 now, safe for discharge Monitor closely for bleeding (3) HTN (hypertension): Continue amlodipine, lisinopril-hctz (4) HLD (hyperlipidemia): Continue statin (5) Bipolar disorder: Continue fluoxetine, Lamictal, aripiprazole HS, benztropine HS DVT Ppx: SCDs only given severe thrombocytopenia Code status: FULL PCP: [facility] Page Dispo: Admitted to PCU ROS-No Headache, No Visual Changes, No Nausea, No Vomiting, No Fever, No Chills, No Neck Pain or Stiffness, No Chest Pain, No Palpitations, No SOB, No HOLDER, No Cough, No Sputum, No Wheezing, No Abdominal Pain, No Diarrhea, No Hematemesis, No Hemoptysis, No Unexpected Weight Loss, No Flank pain, No Melena, No Hematochezia, No Frequency, No Urgency, No Burning, No Hematuria, No Rashes, No Diaphoresis. Appetite is Normal Physical Exam Gen-AAO x 3, NAD, Afebrile Head-NCAT, EOMI, PERRLA, Anicteric Sclera, No Posterior Pharyngeal Erythema Neck-Supple, No JVD, No Thyromegaly, No Masses, No LAD, No Bruits Lungs-Clear to Auscultation Bilaterally, No Rales, No Rhonchi, No Wheezing, No Crepitus Chest-No S4, +S1, +S2, No S3, No Murmurs, No Rubs, No Gallops, No Ectopy Abdomen-Soft, Bowel Sounds Present, Non Tender, Non Distended, No Hepatomegaly, No Splenomegaly, No Palpable Masses, No Rebound, No Rigidity, No Guarding Musculoskeletal-Full Range of Motion Bilaterally, No CVAT Extremities-No Cyanosis, No Clubbing, No Edema Nuero-Cranial Nerves II-XII grossly intact, Motor WNL, DTRs WNL, Strength WNL, Non Focal Psych-Normal Mood. Total Time Total Time Spent Total Time Spent (In Minutes): 45 mins Discharge Plan Discharge Items [facility]position[facility] Reason For Visit: SEVERE THROMBOCYTOPENIA, H/O ITP Discharge Diagnosis: (1) Severe thrombocytopenia: (2) Drug-induced ITP: (3) HTN (hypertension): (4) HLD (hyperlipidemia): (5) Bipolar disorder: Condition on Discharge: Good Activity: Resume your previous activity Lifting: Gradually increase as tolerated Bathing: No limitations Exercise/Sports: Gradually increase as tolerated Weightbearing: Full weightbearing Non-emergency contact: Primary Care Provider and Oncologist Call non-emergency contact if: you have any medication questions Follow-up/Referrals: Kaylee HOLDER [Primary Care Provider] - Ac Montgomery DO [Physician] - (Follow up in 1-2 months) Diet: Regular Addtl Attending Provider Instructions: Follow-up with oncologist in [address] Montgomery Pending Studies at Discharge: No Stand-Alone Forms: My [facility] [employer] Skilled Items Patient informed of condition?: Yes Discharge Level of Care: Other Communicable Disease: No Discharge Prognosis: Stable Lines: None Urinary Catheter: No Medications and DC Order Prescriptions: New amlodipine [Norvasc] 5 mg Tablet 10 mg PO QAM Qty: 60 RF: 0 dexamethasone 4 mg Tablet 40 mg PO DAILY Qty: 3 RF: 0 rosuvastatin [Crestor] 20 mg Tablet 20 mg PO QAM Qty: 30 RF: 0 lisinopril 20 mg tablet 20 mg PO DAILY Qty: 30 RF: 0 Continued amlodipine 10 mg Tablet 10 mg PO DAILY RF: 0 benztropine 1 mg Tablet 1 mg PO HS RF: 0 fluoxetine 20 mg Capsule 80 mg PO DAILY RF: 0 lamotrigine [Lamictal] 100 mg Tablet 200 mg PO DAILY RF: 0 aripiprazole 5 mg Tablet 5 mg PO HS RF: 0 rosuvastatin 20 mg Tablet 20 mg PO HS RF: 0 levalbuterol tartrate [Xopenex HFA] 45 mcg/actuation Hfa Aerosol Inhaler 2 inh INHALATION QID PRN (Reason: as directed) RF: 0 acetaminophen [Acetaminophen Extra Strength] 500 mg Tablet 1,000 mg PO TID PRN (Reason: Pain) RF: 0 Discontinued lisinopril-hydrochlorothiazide 20-25 mg Tablet 1 tab PO DAILY RF: 0 Discharge Orders: Discharge Order (Routine); Ordered 08/24/21 Ordered By: Ronnell Marks Admission Data Admit Date/Time: 08/22/21 12:35 Attending Provider: Ronnell Marks Admit Provider: Ronnell Marks Primary Care Provider: Kaylee HOLDER Other Providers: Ronnell Marks ; Dunia Wiley
== END 2021-08-24 15:15 | DRG 813 ==
LOC: ED 10:14 → INTOOBSV 12:35 → EDINP 12:35 → 2S 18:21
DX: D69.3 Immune thrombocytopenic purpura; T50.905A Adverse effect of unspecified drugs, medicaments and biological substances, initial encounter; Z83.3 Family history of diabetes mellitus; Z88.2 Allergy status to sulfonamides; Z79.899 Other long term (current) drug therapy; I10 Essential (primary) hypertension; Z82.49 Family history of ischemic heart disease and other diseases of the circulatory system; E78.5 Hyperlipidemia, unspecified

== ENCOUNTER 2021-09-10 15:19 | Inpatient (IN) ==
[2021-09-10 16:38] LABS: INR 0.9 (0.9-1.1); Partial Thromboplastin Ratio 0.9; Partial Thromboplastin Time 23.9 Seconds (21.0-31.0); Prothrombin Time 9.5 Seconds (9.0-12.0)
[2021-09-10 16:44] LABS: Albumin Level 3.7 gm/dl (3.4-5.0); BUN Creatinine Ratio 15.2 (10-20); Bilirubin,Total 0.4 mg/dl (0.2-1.0); Creatinine Clr Calc Pharmacy 116.1 ml/min; Est GFR (African American) 109.7 ml/min; Est GFR (Non-African American) 94.6 ml/min; Globulin 3.6 gm/dl (2.5-4.0); Potassium 3.9 mmol/L (3.5-5.1); Total Protein 7.3 gm/dl (6.0-8.3)
[2021-09-10 16:55] LABS: Hematocrit (blood only) 34.6 % (42-52); Mean Corpuscular Hemoglobin 29.3 pg (25-34); Mean Corpuscular Hgb Conc 34.7 g/dL (32-36); Mean Corpuscular Volume 84.6 fL (80-100); Platelet Count 12 K/uL (130-400); Platelet Estimate SIGNIFIC DECREASED (Normal); RDW Standard Deviation 45.9 fL (36.4-46.3); Red Blood Count 4.09 M/uL (4.7-6.1); White Blood Count 7.11 K/uL (4.8-10.8)
--- NOTE | 2021-09-10 18:31 | Emergency Department Note ---
Impression & Plan Thrombocytopenia, Melena ED Provider Note Provider: Silvino Ramirez MD DATE OF SERVICE: 09/10/2021 CHIEF COMPLAINT: Black stools HISTORY OF PRESENT ILLNESS: Patient is a 55-year-old gentleman history of bipolar disorder, hypertension, and ITP presenting today from the correction. Patient reports this afternoon developed some black stools. Noted over the past several days little bit of increased bruising and some bruising on his lower legs. Patient denies any abdominal pain. Had an EGD yesterday reportedly normal although there was some dilation performed by his report. Patient denies shortness of breath or chest discomfort. States he does feel may be a little bit dizzy. Mild headache right now for the last several hours. States this has been coming and going over the last several weeks. No trauma reported. Reports due to the steroids has been on for several episodes of low platelet count he developed a fungal infection of the esophagus and is finishing an antifungal for this. By the available records it appears the patient has been on fluconazole and is set to finish in 2 days. Patient denies any bright red blood per rectum. Patient denies a history of similar. Patient reports before the last 6 weeks or so he did not have issues with his platelets before. Again was hospitalized here twice for this over the past 6 weeks. REVIEW OF SYSTEMS: A total of 10 review of systems was obtained and negative except as stated above in the HPI. PAST MEDICAL HISTORY: As noted above MEDICATIONS: Reviewed medication list from the correction. SOCIAL HISTORY: Patient currently resides in correction. PHYSICAL EXAM: GENERAL: alert and oriented in no acute distress on stretcher guards at bedside. Shackled to bed. Head: normocephalic and atraumatic EYES: No injection, discharge or icterus. PERRL NECK: Trachea midline. Supple. ENT: Mucous membranes pink and moist. LUNGS: Airway patent. No retractions. Breath sounds clear HEART: Regular rate and rhythm. No chest wall tenderness ABDOMEN: Soft and non-tender, without guarding or rebound. Rectal: With nurse Thiago at bedside, rectal performed with Hemoccult positive stool. SKIN: Acyanotic, warm, dry, with occasional scattered bruises on the upper arm. Some petechiae noted in the bilateral lower legs left greater than right. EXTREMITIES: Without swelling, tenderness or deformity except for some petechiae in the lower extremities occasional scattered bruises in the upper extremity is noted NEUROLOGICAL: No focal deficits. No aphasia. No facial droop or slurred speech. Normal strength and tone in the extremities. Sensation to gross touch normal. EK bpm sinus tachycardia. No PVC or PAC. No acute ST segment elevation or depression. QTc 470. CONTINUOUS CARDIAC MONITORING: was ordered and showed a heart rate of 80s-100s bpm in normal sinus rhythm to sinus tachycardia Patient's laboratory studies and imaging reviewed. Differential includes Diverticulosis, AVM, coagulopathy, colitis, inflammatory bowel disease, malignancy, Brandi-Calle tear, esophagitis, peptic ulcer disease, variceal bleed, gastritis, epistaxis, fissure, hemorrhoids, as well as other pathologies. IMPRESSION/MEDICAL DECISION MAKING: Reviewed epic records of EGD as well as recent admissions here. Platelet count is dropped again today at 12. A little bit of dizziness but no severe headache only mild headache but or other neurological findings reported. However given the low platelet count a CT that is completed. CT abdomen pelvis given the melanotic stool was obtained as well as recent EGD. EG rate records indicate a biopsy was taken but otherwise fairly normal findings were noted. Patient is not hypotensive or tachycardic and not on high risk anticoagulants. Has again been on Diflucan for esophageal candidiasis but EGD yesterday again do not see significant evidence of this. Given a dose of Protonix here IV. CT of the abdomen pelvis per radiology without acute intra-abdominal pathology. CT of the head completed given some headache and mild dizziness per radiology question some asymmetry of the ventricles and cannot exclude hydrocephalus. No active bleeding noted. Discussed this with neurology on-call Dr. Banks as well as radiologist Dr. Thao. Imaging discussed with [facility] Dr. Alatorre who personally reviewed the images and believe this is a congenital finding. Did not recommend transfer or or any acute or actual repeat imaging. Again the patient does not present like acute hydrocephalus here on exam. CT the abdomen pelvis is reassuring per radiology. Discussed with hematology/oncology Dr. Montgomery He did not recommend additional steroids. Recommend the hospitalist try to obtain IVIG 1 g/kg for 2 days. He will discuss with the patient possible other therapeutic options including possible rituximab. Patient was updated. Given some Tylenol. Hospitalist contacted. DIAGNOSIS: Thrombocytopenia recurrent, melanotic stools DISPOSITION: Hospitalist will evaluate Patient was agreeable with this plan. 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 Required: No Beliefs That Will Affect Care: None Current Living Situation: Other Feels Safe at Home: Yes Assistive Devices: None Allergies Allergies Allergy/AdvReac Type Severity Reaction Status Date / Time sulfamethoxazole Allergy Unknown Unknown Verified 09/10/21 18:31 [From Bactrim] trimethoprim [From Bactrim] Allergy Unknown Unknown Verified 09/10/21 18:31 Home Meds Home Medications Medication Instructions Recorded Confirmed amlodipine 10 mg tablet 10 mg PO DAILY 07/29/21 09/10/21 fluoxetine 20 mg capsule 80 mg PO DAILY 07/29/21 09/10/21 lamotrigine 100 mg tablet 200 mg PO DAILY 07/29/21 09/10/21 (Lamictal) rosuvastatin 20 mg tablet 20 mg PO HS 07/29/21 09/10/21 acetaminophen 500 mg tablet 1,000 mg PO TID PRN 08/22/21 09/10/21 (Acetaminophen Extra Strength) albuterol sulfate 90 mcg/actuation 2 puff INHALATION QID PRN 09/10/21 09/10/21 aerosol inhaler fluconazole 100 mg tablet 100 mg PO UD 09/10/21 09/10/21 (Diflucan) lisinopril 20 1 tab PO DAILY 09/10/21 09/10/21 mg-hydrochlorothiazide 25 mg tablet nystatin 100,000 unit/mL oral 15 ml PO DAILY 09/10/21 09/10/21 suspension Results & Data (ED) Vital Signs Vital Signs - 24 hr 09/10/21 15:23 09/10/21 18:50 09/10/21 18:51 Temperature 36.4 C L Temperature Source Temporal Artery Scan Pulse Rate 71 Pulse Rate [Apical] 93 H Pulse Rhythm Regular Pulse Strength Normal Respiratory Rate 20 16 Respiratory Effort / Characteristics Non-Labored Spontaneous Respiratory Depth Normal Respiratory Pattern Regular Blood Pressure 174/95 H Blood Pressure [Left Arm] 152/91 H Blood Pressure Mean 121 Blood Pressure Mean [Left Arm] 111 Blood Pressure Position Sitting Pulse Oximetry 93 98 99 Oxygen Delivery Method Room Air Room Air Sepsis Recent Fever Within 48 Hours No Sepsis New/Unexplained Change in Mental Status No Sepsis Action Taken by Nursing No Action Required 09/10/21 20:00 09/10/21 22:00 Temperature Temperature Source Pulse Rate Pulse Rate [Apical] 79 88 Pulse Rhythm Pulse Strength Respiratory Rate 15 17 Respiratory Effort / Characteristics Respiratory Depth Normal Respiratory Pattern Blood Pressure Blood Pressure [Left Arm] 152/91 H 157/100 H Blood Pressure Mean Blood Pressure Mean [Left Arm] 111 119 Blood Pressure Position Pulse Oximetry 96 98 Oxygen Delivery Method Room Air Sepsis Recent Fever Within 48 Hours Sepsis New/Unexplained Change in Mental Status Sepsis Action Taken by Nursing Laboratory Data Result diagrams: 09/10/21 16:13 09/10/21 16:13 Lab Results 09/10/21 09/10/21 09/10/21 Range/Units 16:13 16:13 16:13 WBC 7.11 (4.8-10.8) K/uL RBC 4.09 L (4.7-6.1) M/uL Hgb 12.0 L (14.0-18.0) g/dL Hct 34.6 L (42-52) % MCV 84.6 (80-100) fL MCH 29.3 (25-34) pg MCHC 34.7 (32-36) g/dL RDW Std Deviation 45.9 (36.4-46.3) fL RDW Coeff of Dianelys 15.0 H (11.5-14.5) % Plt Count 12 L* (130-400) K/uL Platelet Estimate SIGNIFIC DECREASED (Normal) PT 9.5 (9.0-12.0) Seconds INR 0.9 (0.9-1.1) APTT 23.9 (21.0-31.0) Seconds PTT Ratio 0.9 Sodium (136-145) mmol/L Potassium (3.5-5.1) mmol/L Chloride (98-107) mmol/L Carbon Dioxide (21-32) mmol/L Anion Gap (3-11) BUN (6-23) mg/dl Creatinine (0.6-1.4) mg/dl Est Cr Clr Drug Dosing ml/min Est GFR ( Amer) ml/min Est GFR (Non-Af Amer) ml/min BUN/Creatinine Ratio (10-20) Glucose (70-99(Fasting)) mg/dl Calcium (8.5-10.1) mg/dl Magnesium (1.7-2.4) mg/dl Total Bilirubin (0.2-1.0) mg/dl AST (13-39) U/L ALT (7-52) U/L Alkaline Phosphatase (34-104) U/L Troponin I (0-0.04) ng/ml Total Protein (6.0-8.3) gm/dl Albumin (3.4-5.0) gm/dl Globulin (2.5-4.0) gm/dl Albumin/Globulin Ratio (0.9-2) TSH (0.300-4.500) uIu/ml POC Stool Occult Blood (Negative) SARS-CoV-2, RNA, NAAT (NEGATIVE) Blood Type A Negative Antibody Screen NEGATIVE 09/10/21 09/10/21 09/10/21 Range/Units 16:13 16:15 16:15 WBC (4.8-10.8) K/uL RBC (4.7-6.1) M/uL Hgb (14.0-18.0) g/dL Hct (42-52) % MCV (80-100) fL MCH (25-34) pg MCHC (32-36) g/dL RDW Std Deviation (36.4-46.3) fL RDW Coeff of Dianelys (11.5-14.5) % Plt Count (130-400) K/uL Platelet Estimate (Normal) PT (9.0-12.0) Seconds INR (0.9-1.1) APTT (21.0-31.0) Seconds PTT Ratio Sodium 136 (136-145) mmol/L Potassium 3.9 (3.5-5.1) mmol/L Chloride 102 (98-107) mmol/L Carbon Dioxide 26 (21-32) mmol/L Anion Gap 8 (3-11) BUN 14 (6-23) mg/dl Creatinine 0.92 (0.6-1.4) mg/dl Est Cr Clr Drug Dosing 116.1 ml/min Est GFR ( Amer) 109.7 ml/min Est GFR (Non-Af Amer) 94.6 ml/min BUN/Creatinine Ratio 15.2 (10-20) Glucose 106 H (70-99(Fasting)) mg/dl Calcium 9.0 (8.5-10.1) mg/dl Magnesium 1.8 (1.7-2.4) mg/dl Total Bilirubin 0.4 (0.2-1.0) mg/dl AST 43 H (13-39) U/L ALT 106 H (7-52) U/L Alkaline Phosphatase 91 (34-104) U/L Troponin I < 0.03 (0-0.04) ng/ml Total Protein 7.3 (6.0-8.3) gm/dl Albumin 3.7 (3.4-5.0) gm/dl Globulin 3.6 (2.5-4.0) gm/dl Albumin/Globulin Ratio 1.0 (0.9-2) TSH 1.331 (0.300-4.500) uIu/ml POC Stool Occult Blood (Negative) SARS-CoV-2, RNA, NAAT (NEGATIVE) Blood Type Antibody Screen 09/10/21 09/10/21 Range/Units 18:40 21:24 WBC (4.8-10.8) K/uL RBC (4.7-6.1) M/uL Hgb (14.0-18.0) g/dL Hct (42-52) % MCV (80-100) fL MCH (25-34) pg MCHC (32-36) g/dL RDW Std Deviation (36.4-46.3) fL RDW Coeff of Dianelys (11.5-14.5) % Plt Count (130-400) K/uL Platelet Estimate (Normal) PT (9.0-12.0) Seconds INR (0.9-1.1) APTT (21.0-31.0) Seconds PTT Ratio Sodium (136-145) mmol/L Potassium (3.5-5.1) mmol/L Chloride (98-107) mmol/L Carbon Dioxide (21-32) mmol/L Anion Gap (3-11) BUN (6-23) mg/dl Creatinine (0.6-1.4) mg/dl Est Cr Clr Drug Dosing ml/min Est GFR ( Amer) ml/min Est GFR (Non-Af Amer) ml/min BUN/Creatinine Ratio (10-20) Glucose (70-99(Fasting)) mg/dl Calcium (8.5-10.1) mg/dl Magnesium (1.7-2.4) mg/dl Total Bilirubin (0.2-1.0) mg/dl AST (13-39) U/L ALT (7-52) U/L Alkaline Phosphatase (34-104) U/L Troponin I (0-0.04) ng/ml Total Protein (6.0-8.3) gm/dl Albumin (3.4-5.0) gm/dl Globulin (2.5-4.0) gm/dl Albumin/Globulin Ratio (0.9-2) TSH (0.300-4.500) uIu/ml POC Stool Occult Blood Positive A (Negative) SARS-CoV-2, RNA, NAAT NEGATIVE (NEGATIVE) Blood Type Antibody Screen Administered Medications Discontinued Medications Acetaminophen (Acetaminophen 500 Mg Tab) 1,000 mg PO NOW STA Stop: 09/10/21 20:54 Last Admin: 09/10/21 20:55 Dose: 1,000 mg Documented by: [id number] Pantoprazole Sodium 80 mg/ (Dextrose) 100 mls @ 400 mls/hr IV ONE STA Stop: 09/10/21 19:20 Last Infusion: 09/10/21 21:35 Dose: 0 mls/hr Documented by: [id number] Admin: 09/10/21 19:23 Dose: 400 mls/hr Documented by: [id number] Ioversol (Optiray 320 100ml) 91 ml IV ONCE ONE Stop: 09/10/21 19:23 Last Admin: 09/10/21 19:22 Dose: 91 ml Documented by: [id number] Imaging Data Radiologist's Impression: Abdomen/Pelvis CT 09/10/21 18:28 CT abd pelvis IV con only CLINICAL HISTORY: melena, low plts. egd yesterday TECHNIQUE: Helical axial images of the abdomen and pelvis were obtained and displayed. Automated dose lowering techniques and/or adjustment according to patient size were utilized for this exam. This exam was performed with intravenous contrast. COMPARISON: None available at the time of this dictation. FINDINGS: Lower chest: No acute abnormality Liver: Unremarkable. No focal lesions are seen. Gallbladder and biliary tree: No calcified gallstones. Normal caliber wall. No intra- or extrahepatic biliary ductal dilation. Pancreas: Unremarkable, no focal lesions. Spleen: Unremarkable. Adrenals: Unremarkable. Kidneys and ureters: Unremarkable. Bladder: Unremarkable. Reproductive organs: Unremarkable. Bowel: The colon is underdistended. There is borderline prominence of the wall but no surrounding fat stranding, this is likely secondary to underdistention. The appendix is normal. Lymph nodes Retroperitoneal: Unremarkable. Mesenteric: Subcentimeter lymph nodes are noted. Pelvic: Unremarkable. Peritoneum: Normal. Vessels: Unremarkable. Abdominal wall: Unremarkable. Bones: Unremarkable. IMPRESSION: No acute abnormalities. ACT 112: Negative or not required by law. Electronically signed by: Chase Thao M.D. 09/10/2021 7:[address] 09/10/21 18:30 CT head/brain wo con CLINICAL HISTORY: low plts, dizzy Technique: Contiguous axial CT images of the head were acquired from the base of the skull to the vertex without intravenous contrast administration. Images were viewed in brain, subdural and bone windows. Automated dose lowering techniques and/or adjustment according to patient size were utilized for this exam. Comparison: None available at the time of this dictation. Findings: The ventricles, basal cisterns, and cerebral sulci are normal. There is no acute intracranial hemorrhage or evidence of acute territorial infarction. Neither mass effect, shift of the midline structures, nor abnormal extra-axial fluid collections are shown. Incidentally noted is enlargement of the right greater than left temporal horns. Imaged portions of the paranasal sinuses and mastoid air cells are clear. The orbits appear normal. There are no acute fractures of the calvaria or scalp swelling. Impression: There is mild enlargement of the lateral foramina which appears somewhat out of proportion to cortical atrophy. Hydrocephalus may be present. ACT 112: Negative or not required by law. Electronically signed by: Chase Thao M.D. 09/10/2021 7:32 PM Discharge Plan Visit Data Chief Complaint: GI Assessment Stated Complaint: BLACK TARRY STOOLS ED Provider: Silvino Ramirez Discharge Problem: Thrombocytopenia, Melena Patient Disposition: Admitted As Inpatient Forms Stand Alone Forms: [facility] Prescriptions Prescriptions: No Action amlodipine 10 mg Tablet 10 mg PO DAILY RF: 0 fluoxetine 20 mg Capsule 80 mg PO DAILY RF: 0 lamotrigine [Lamictal] 100 mg Tablet 200 mg PO DAILY RF: 0 rosuvastatin 20 mg Tablet 20 mg PO HS RF: 0 lisinopril-hydrochlorothiazide 20-25 mg Tablet 1 tab PO DAILY RF: 0 nystatin [Mycostatin] 100,000 unit/mL Suspension 15 ml PO DAILY RF: 0 albuterol sulfate 90 mcg/actuation Hfa Aerosol Inhaler 2 puff INHALATION QID PRN (Reason: Shortness Of Breath) RF: 0 fluconazole [Diflucan] 100 mg Tablet 100 mg PO UD RF: 0 acetaminophen [Acetaminophen Extra Strength] 500 mg Tablet 1,000 mg PO TID PRN (Reason: Pain) RF: 0 Referrals Referrals: Kaylee HOLDER [Primary Care Provider] -
[2021-09-10] MEDS ORDERED: PANTOprazole 80 MG in DEXTROSE 5% 100 ML IV STA (19:06)
[2021-09-10 19:10] LABS: Magnesium 1.8 mg/dl (1.7-2.4)
[2021-09-10 19:13] LABS: Troponin I < 0.03 ng/ml (0-0.04)
[2021-09-10] MEDS ORDERED: OPTIRAY 320 100ml IV ONE (19:22)
--- NOTE | 2021-09-10 19:33 | CT Scan Report ---
CT head/brain wo con CLINICAL HISTORY: low plts, dizzy Technique: Contiguous axial CT images of the head were acquired from the base of the skull to the ellis dusty without intravenous contrast administration. Images were viewed in brain, subdural and bone [facility]. Automated dose lowering techniques and/or adjustment according to patient size were utilized for this exam. Comparison: None available at the time of this dictation. Findings: The ventricles, basal cisterns, and cerebral sulci are normal. There is no acute intracranial hemorrh age or evidence of acute territorial infarction. Neither mass effect, shift of the midline structures , nor abnormal extra-axial fluid collections are shown. Incidentally noted is enlargement of the righ t greater than left temporal horns. Imaged portions of the paranasal sinuses and mastoid air cells are clear. The orbits appear normal. There are no acute fractures of the calvaria or scalp swelling. Impression: There is mild enlargement of the lateral foramina which appears somewhat out of proportion to cortica l atrophy. Hydrocephalus may be present. ACT 112: Negative or not required by law. Electronically signed by: Chase Thao M.D. 09/10/2021 7:32 PM
--- NOTE | 2021-09-10 19:45 | CT Scan Report ---
CT abd pelvis IV con only CLINICAL HISTORY: melena, low plts. egd yesterday TECHNIQUE: Helical axial images of the abdomen and pelvis were obtained and displayed. Automated dose lowering techniques and/or adjustment according to patient size were utilized for this exam. This e xam was performed with intravenous contrast. COMPARISON: None available at the time of this dictation. FINDINGS: Lower chest: No acute abnormality Liver: Unremarkable. No focal lesions are seen. Gallbladder and biliary tree: No calcified gallstones. Normal caliber wall. No intra- or extrahepatic biliary ductal dilation. Pancreas: Unremarkable, no focal lesions. Spleen: Unremarkable. Adrenals: Unremarkable. Kidneys and ureters: Unremarkable. Bladder: Unremarkable. Reproductive organs: Unremarkable. Bowel: The colon is underdistended. There is borderline prominence of the wall but no surrounding fat stranding, this is likely secondary to underdistention. The appendix is normal. Lymph nodes Retroperitoneal: Unremarkable. Mesenteric: Subcentimeter lymph nodes are noted. Pelvic: Unremarkable. Peritoneum: Normal. Vessels: Unremarkable. Abdominal wall: Unremarkable. Bones: Unremarkable. IMPRESSION: No acute abnormalities. ACT 112: Negative or not required by law. Electronically signed by: Chase Thao M.D. 09/10/2021 7:44 PM
[2021-09-10] MEDS ORDERED: ACETAMINOPHEN 500 MG TAB PO STA (20:53)
--- NOTE | 2021-09-10 22:57 | History & Physical Report ---
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 past tobacco abuse Medical telemetry IV PPI GI consult Re: UGI B N.p.o. for now until patient seen by GI Follow H&H, transfuse PRBC if hemoglobin less than 7 and or for symptomatic anemia Hematology consult Re: Recurrent ITP causing UGI B ER provider already in touch with Dr. [place] who recommends IVIG 1 g/kg daily for 2 consecutive days. (Of note, patient expressed hesitation about receiving additional steroid Rx following recent bout of oral thrush.) Check hemoglobin A1c DVT prophylaxis with SCDs Re: UGI B Full code Text document was generated using [employer] voice recognition software. It may contain grammatical or spelling errors. Kindly contact undersigned for clarification of any documentation item in question. History of Present Illness Chief Complaint: Melena Primary Care Provider: GALLO Page History obtained from patient and records. Medical history significant for hypertension, hyperlipidemia, mood disorder, chronic anemia (baseline hemoglobin 13), drug-induced ITP ( J&J COVID-19 vaccine), past tobacco abuse. Last confinement 3 weeks ago for severe thrombocytopenia following suspected ITP secondary to J&J COVID-19 vaccine which patient received June 2021. Patient presented with mucosal bleed. Platelet counts improve with Decadron and IVIg course. Upon return to correctional facility, patient developed oral thrush with dys phagia symptoms a week later. Thrush responded to antifungal regimen initiated outpatient. Few days ago, patient noted new bruising and bleeding spots on the arms and legs. Patient underwent outpatient EGD at [facility] yesterday for dysphagia complaints. No endoscopic esophageal abnormality. Esophagus dilated during procedure. Gastritis noted on endoscopy. This afternoon, patient noted melanotic stools without abdominal pain, chest pain, S OB. Mild right-sided headache symptoms. No OTC NSAID intake. Patient brought to the ER for evaluation. 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 Allergies Allergy/AdvReac Type Severity Reaction Status Date / Time sulfamethoxazole Allergy Unknown Unknown Verified 09/10/21 18:31 [From Bactrim] trimethoprim [From Bactrim] Allergy Unknown Unknown Verified 09/10/21 18:31 JJ covid vaccine AdvReac Intermediate ITP Uncoded 09/11/21 01:35 Home Medications Medication Instructions Recorded Confirmed Type amlodipine 10 mg tablet 10 mg PO DAILY 07/29/21 09/10/21 History fluoxetine 20 mg capsule 80 mg PO DAILY 07/29/21 09/10/21 History lamotrigine 100 mg tablet 200 mg PO DAILY 07/29/21 09/10/21 History (Lamictal) rosuvastatin 20 mg tablet 20 mg PO HS 07/29/21 09/10/21 History acetaminophen 500 mg tablet 1,000 mg PO TID PRN 08/22/21 09/10/21 History (Acetaminophen Extra Strength) albuterol sulfate 90 mcg/actuation 2 puff INHALATION QID PRN 09/10/21 09/10/21 History aerosol inhaler fluconazole 100 mg tablet 100 mg PO UD 09/10/21 09/10/21 History (Diflucan) lisinopril 20 1 tab PO DAILY 09/10/21 09/10/21 History mg-hydrochlorothiazide 25 mg tablet nystatin 100,000 unit/mL oral 15 ml PO DAILY 09/10/21 09/10/21 History suspension Past Med/Surg History Medical History Bipolar disorder HLD (hyperlipidemia) HTN (hypertension) Sarcoidosis Surgical History History of lung surgery Family History Other Diabetes Heart disease Social History Smoking Status: Former smoker Hx Alcohol Use: No Hx Substance Use: No Preferred Language: British Communication Ability: Effective Manager Pharmacy Required: No Beliefs That Will Affect Care: None Current Living Situation: Other Feels Safe at Home: Yes Assistive Devices: None Review of Systems Review of Systems: As per HPI, all 10 systems reviewed, all other ROS negative Physical Exam Physical Exam: GENERAL: Comfortable, obese, pleasant no respiratory distress SKIN: Petechial and purpuric lesions over the extremities, pallor, warm HEENT: Partial alopecia, bespectacled, pale palpebral conjunctivae, no ptosis, dry buccal mucosa NECK : Supple, short neck, no tenderness CHEST : CTA, no tenderness HEART : RRR, no obvious murmurs ABDOMEN: Some distention, nontender EXTREMITIES : No LE swelling/tenderness, no other conspicuous deformities noted NEUROLOGIC : Coherent, no facial asymmetry, no other gross focality Results & Data Results & Data ([facility]) Vital Signs (Past 12 Hours) Vital Signs Temp Pulse Pulse Resp BP BP Pulse Ox 09/10/21 22:00 88 17 157/100 H 98 09/10/21 20:00 79 15 152/91 H 96 09/10/21 18:51 99 09/10/21 18:50 93 H 16 152/91 H 98 09/10/21 15:23 36.4 C L 71 20 174/95 H 93 Laboratory Results Laboratory Results WBC 7.11 K/uL (4.8-10.8) 09/10/21 16:13 RBC 4.09 M/uL (4.7-6.1) L 09/10/21 16:13 Hgb 12.0 g/dL (14.0-18.0) L 09/10/21 16:13 Hct 34.6 % (42-52) L 09/10/21 16:13 MCV 84.6 fL (80-100) 09/10/21 16:13 MCH 29.3 pg (25-34) 09/10/21 16:13 MCHC 34.7 g/dL (32-36) 09/10/21 16:13 RDW Std Deviation 45.9 fL (36.4-46.3) 09/10/21 16:13 RDW Coeff of Dianelys 15.0 % (11.5-14.5) H 09/10/21 16:13 Plt Count 12 K/uL (130-400) L* 09/10/21 16:13 Platelet Estimate SIGNIFIC DECREASED (Normal) 09/10/21 16:13 PT 9.5 Seconds (9.0-12.0) 09/10/21 16:13 INR 0.9 (0.9-1.1) 09/10/21 16:13 APTT 23.9 Seconds (21.0-31.0) 09/10/21 16:13 PTT Ratio 0.9 09/10/21 16:13 Sodium 136 mmol/L (136-145) 09/10/21 16:13 Potassium 3.9 mmol/L (3.5-5.1) 09/10/21 16:13 Chloride 102 mmol/L (98-107) 09/10/21 16:13 Carbon Dioxide 26 mmol/L (21-32) 09/10/21 16:13 Anion Gap 8 (3-11) 09/10/21 16:13 BUN 14 mg/dl (6-23) 09/10/21 16:13 Creatinine 0.92 mg/dl (0.6-1.4) 09/10/21 16:13 Est Cr Clr Drug Dosing 116.1 ml/min 09/10/21 16:13 Est GFR ( Amer) 109.7 ml/min 09/10/21 16:13 Est GFR (Non-Af Amer) 94.6 ml/min 09/10/21 16:13 BUN/Creatinine Ratio 15.2 (10-20) 09/10/21 16:13 Glucose 106 mg/dl (70-99(Fasting)) H 09/10/21 16:13 Calcium 9.0 mg/dl (8.5-10.1) 09/10/21 16:13 Magnesium 1.8 mg/dl (1.7-2.4) 09/10/21 16:15 Total Bilirubin 0.4 mg/dl (0.2-1.0) 09/10/21 16:13 AST 43 U/L (13-39) H 09/10/21 16:13 ALT 106 U/L (7-52) H 09/10/21 16:13 Alkaline Phosphatase 91 U/L (34-104) 09/10/21 16:13 Troponin I < 0.03 ng/ml (0-0.04) 09/10/21 16:15 Total Protein 7.3 gm/dl (6.0-8.3) 09/10/21 16:13 Albumin 3.7 gm/dl (3.4-5.0) 09/10/21 16:13 Globulin 3.6 gm/dl (2.5-4.0) 09/10/21 16:13 Albumin/Globulin Ratio 1.0 (0.9-2) 09/10/21 16:13 TSH 1.331 uIu/ml (0.300-4.500) 09/10/21 16:15 POC Stool Occult Blood Positive (Negative) A 09/10/21 21:24 SARS-CoV-2, RNA, NAAT NEGATIVE (NEGATIVE) 09/10/21 18:40 Blood Type A Negative 09/10/21 16:13 Antibody Screen NEGATIVE 09/10/21 16:13 Impressions Abdomen/Pelvis CT 09/10/21 18:28 CT abd pelvis IV con only CLINICAL HISTORY: melena, low plts. egd yesterday TECHNIQUE: Helical axial images of the abdomen and pelvis were obtained and displayed. Automated dose lowering techniques and/or adjustment according to patient size were utilized for this exam. This exam was performed with intravenous contrast. COMPARISON: None available at the time of this dictation. FINDINGS: Lower chest: No acute abnormality Liver: Unremarkable. No focal lesions are seen. Gallbladder and biliary tree: No calcified gallstones. Normal caliber wall. No intra- or extrahepatic biliary ductal dilation. Pancreas: Unremarkable, no focal lesions. Spleen: Unremarkable. Adrenals: Unremarkable. Kidneys and ureters: Unremarkable. Bladder: Unremarkable. Reproductive organs: Unremarkable. Bowel: The colon is underdistended. There is borderline prominence of the wall but no surrounding fat stranding, this is likely secondary to underdistention. The appendix is normal. Lymph nodes Retroperitoneal: Unremarkable. Mesenteric: Subcentimeter lymph nodes are noted. Pelvic: Unremarkable. Peritoneum: Normal. Vessels: Unremarkable. Abdominal wall: Unremarkable. Bones: Unremarkable. IMPRESSION: No acute abnormalities. ACT 112: Negative or not required by law. Electronically signed by: Chase Thao M.D. 09/10/2021 7:[address] 09/10/21 18:30 CT head/brain wo con CLINICAL HISTORY: low plts, dizzy Technique: Contiguous axial CT images of the head were acquired from the base of the skull to the vertex without intravenous contrast administration. Images were viewed in brain, subdural and bone windows. Automated dose lowering techniques and/or adjustment according to patient size were utilized for this exam. Comparison: None available at the time of this dictation. Findings: The ventricles, basal cisterns, and cerebral sulci are normal. There is no acute intracranial hemorrhage or evidence of acute territorial infarction. Neither mass effect, shift of the midline structures, nor abnormal extra-axial fluid collections are shown. Incidentally noted is enlargement of the right greater than left temporal horns. Imaged portions of the paranasal sinuses and mastoid air cells are clear. The orbits appear normal. There are no acute fractures of the calvaria or scalp swelling. Impression: There is mild enlargement of the lateral foramina which appears somewhat out of proportion to cortical atrophy. Hydrocephalus may be present. ACT 112: Negative or not required by law. Electronically signed by: Chase Thao M.D. 09/10/2021 7:32 PM Diagnostic Findings EKG as per my interpretation: Rate 105, sinus tachycardia, normal axis, T wave abnormalities inferior leads
[2021-09-10] MEDS ORDERED: LACTATED RINGER'S 1,000 ML IV SCH (23:15)
[2021-09-10] MEDS ORDERED: traMADol HCL 50 MG TABLET PO PRN (23:57)
[2021-09-10] MEDS ORDERED: ACETAMINOPHEN 325 MG TAB PO PRN (23:57)
[2021-09-11] MEDS: PROMETHAZINE HCL 12.5 MG in SODIUM CHLORIDE 0.9% 50 ML IV PRN ×2 (01:57→22:30)
[2021-09-11] MEDS: IMMUN GLOBG(IGG)/MALT/IGA OV50 100 ML IV SCH (02:01)
[2021-09-11 02:18] LABS: Basophils # (auto) 0.04 K/uL (0-0.2); Basophils % (auto) 0.6 %; Eosinophils # (auto) 0.07 K/uL (0-0.5); Hematocrit (blood only) 35.2 % (42-52); Immature Granulocytes # (auto) 0.03 K/uL (0.00-0.02); Immature Granulocytes % (auto) 0.4 %; Lymphocytes # (auto) 2.48 K/uL (1.2-3.4); Lymphocytes % (auto) 36.8 %; Mean Corpuscular Hemoglobin 28.8 pg (25-34); Mean Corpuscular Hgb Conc 34.1 g/dL (32-36); Mean Corpuscular Volume 84.4 fL (80-100); Monocytes # (auto) 0.78 K/uL (0.11-0.59); Monocytes % (auto) 11.6 %; Neutrophils # (auto) 3.34 K/uL (1.4-6.5); Neutrophils % (auto) 49.6 %; Platelet Count 10 K/uL (130-400); Platelet Estimate SIGNIFIC DECREASED (Normal); Polychromasia 1+; RDW Coefficient of Variation 15.3 % (11.5-14.5); RDW Standard Deviation 46.1 fL (36.4-46.3); Red Blood Count 4.17 M/uL (4.7-6.1); White Blood Count 6.74 K/uL (4.8-10.8)
[2021-09-11] MEDS: IMMUN GLOBG(IGG)/MALT/IGA OV50 200 ML IV SCH ×5 (03:57→18:42)
[2021-09-11 06:04] LABS: Albumin Globulin Ratio 0.9 (0.9-2); Albumin Level 3.7 gm/dl (3.4-5.0); BUN Creatinine Ratio 12.4 (10-20); Bilirubin,Total 0.6 mg/dl (0.2-1.0); Calcium 8.7 mg/dl (8.5-10.1); Est GFR (African American) 113.1 ml/min; Est GFR (Non-African American) 97.6 ml/min; Total Protein 7.7 gm/dl (6.0-8.3)
[2021-09-11 06:55] LABS: Hematocrit (blood only) 34.8 % (42-52); Hemoglobin 11.5 g/dL (14.0-18.0); Mean Corpuscular Hemoglobin 28.3 pg (25-34); Mean Corpuscular Volume 85.5 fL (80-100); Platelet Count 13 K/uL (130-400); RDW Coefficient of Variation 15.5 % (11.5-14.5); RDW Standard Deviation 47.2 fL (36.4-46.3); Red Blood Count 4.07 M/uL (4.7-6.1); White Blood Count 5.61 K/uL (4.8-10.8)
[2021-09-11 06:56] LABS: Basophils # (auto) 0.03 K/uL (0-0.2); Basophils % (auto) 0.5 %; Eosinophils # (auto) 0.04 K/uL (0-0.5); Eosinophils % (auto) 0.7 %; Immature Granulocytes # (auto) 0.02 K/uL (0.00-0.02); Immature Granulocytes % (auto) 0.4 %; Lymphocytes % (auto) 30.3 %; Monocytes # (auto) 0.59 K/uL (0.11-0.59); Monocytes % (auto) 10.5 %; Neutrophils # (auto) 3.23 K/uL (1.4-6.5); Neutrophils % (auto) 57.6 %; Platelet Estimate SIGNIFIC DECREASED (Normal)
[2021-09-11 07:19] LABS: Estimated Average Glucose 143 mg/dl; Hemoglobin A1C 6.6 % (4.5-5.6)
[2021-09-11] MEDS: PANTOprazole 40 MG in SYRINGE 0 ML IV SCH ×2 (08:21→22:07)
[2021-09-11] MEDS: FLUCONAZOLE 100 MG TAB PO SCH (08:24)
[2021-09-11] MEDS: amLODIPine BESYLATE 5 MG TAB PO SCH (08:24)
[2021-09-11] MEDS: FLUoxetine HCL 20 MG CAP PO SCH (08:24)
[2021-09-11] MEDS: lamoTRIgine 100 MG TAB PO SCH (08:25)
[2021-09-11] MEDS: lisinopril 20 MG TAB PO SCH (08:25)
[2021-09-11] MEDS ORDERED: NYSTATIN SUSP 500,000 U/5 ML UDC PO SCH ×2 (09:00→14:00)
--- NOTE | 2021-09-11 09:25 | Hospitalist Progress Note ---
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 past tobacco abuse Medical telemetry IV PPI GI consult Re: UGIB Follow H&H, transfuse PRBC if hemoglobin less than 7 and or for symptomatic anemia Hematology consult Re: Recurrent ITP causing UGIB ER provider already in touch with Dr. [place] who recommends IVIG 1 g/kg daily for 2 consecutive days. (Of note, patient expressed hesitation about receiving additional steroid Rx following recent bout of oral thrush.) Will give Diflucan +- Nystatin SW/SW with naxt round of decadron Check hemoglobin A1c DVT prophylaxis with SCDs Re: UGI B Full code Labs checked ROS-No Headache, No Visual Changes, No Nausea, No Vomiting, No Fever, No Chills, No Neck Pain or Stiffness, No Chest Pain, No Palpitations, No SOB, No HOLDER, No Cough, No Sputum, No Wheezing, No Abdominal Pain, No Diarrhea, No Hematemesis, No Hemoptysis, No Unexpected Weight Loss, No Flank pain, No Melena, No Hematochezia, No Frequency, No Urgency, No Burning, No Hematuria, No Rashes, No Diaphoresis. Appetite is Normal, weak Physical Exam Gen-AAO x 3, NAD, Afebrile Head-NCAT, EOMI, PERRLA, Anicteric Sclera, No Posterior Pharyngeal Erythema Neck-Supple, No JVD, No Thyromegaly, No Masses, No LAD, No Bruits Lungs-Clear to Auscultation Bilaterally, No Rales, No Rhonchi, No Wheezing, No Crepitus Chest-No S4, +S1, +S2, No S3, No Murmurs, No Rubs, No Gallops, No Ectopy Abdomen-Soft, Bowel Sounds Present, Non Tender, Non Distended, No Hepatomegaly, No Splenomegaly, No Palpable Masses, No Rebound, No Rigidity, No Guarding Musculoskeletal-Full Range of Motion Bilaterally, No CVAT Extremities-No Cyanosis, No Clubbing, No Edema Nuero-Cranial Nerves II-XII grossly intact, Motor WNL, DTRs WNL, Strength WNL, Non Focal Psych-Normal Mood Admission and Anticipated Discharge Date Admission Date: September 10, 2021 Subjective Patient seen and feels weak Results & Data Results & Data ([facility]) Vital Signs (Past 12 Hours) Vital Signs Temp Pulse Pulse Pulse Resp BP Pulse Ox 09/11/21 07:47 36.6 C 104 H 18 135/93 92 09/11/21 05:48 36.6 C 74 18 141/91 H 100 09/11/21 05:17 80 09/11/21 03:00 71 18 121/80 99 09/11/21 02:18 79 16 122/79 98 09/11/21 01:16 09/11/21 01:05 81 16 136/97 96 09/10/21 23:58 85 20 146/119 H 96 09/10/21 22:00 88 17 157/100 H 98 Pulse Ox 09/11/21 07:47 09/11/21 05:48 09/11/21 05:17 09/11/21 03:00 09/11/21 02:18 09/11/21 01:16 95 09/11/21 01:05 09/10/21 23:58 09/10/21 22:00
[2021-09-11] MEDS ORDERED: FLUCONAZOLE 50 MG TAB PO ONE (09:45)
[2021-09-11] MEDS: dexAMETHasone 4 MG TAB PO SCH (10:59)
--- NOTE | 2021-09-11 11:25 | Consultation Report ---
HEMATOLOGY CONSULTATION DATE OF SERVICE: 09/11/2021. REASON FOR CONSULTATION: Idiopathic thrombocytopenic purpura. HISTORY OF PRESENT ILLNESS: The patient is a pleasant 55-year-old - [place] inmate from [facility] who presents to [facility]'s Emergency Room with GI bleeding and severe thrombocytopenia. This gentleman apparently recently underwent a GI investigation, particularly EGD at [facility] with dysphagia complaints. There was no endoscopic anomalies seen, gastritis was noted, but otherwise no active bleeding was seen during the procedure. This gentleman has been from a superficial standpoint, known to [facility], I have yet to get him in the office, but I have been contacted by the ER on 2 separate occasions where he dropped his platelet count. He has had at least 2 courses of corticosteroids and last admission actually received IVIG 1 gram/kg x2 consecutive daily doses. Both times resulted in a transient improvement in his platelet count; however, once again platelets have dropped to 12,000 on presentation. The patient relates a petechial rash and excessive bruising encompassing his lower extremities bilaterally. PAST MEDICAL HISTORY: Significant for hypertension, ITP, hyperlipidemia, mood disorder, and chronic anemia. MEDICATIONS PRIOR TO ADMISSION: Nystatin 15 mL p.o. daily, lisinopril 20 mg/25 hydrochlorothiazide 1 tablet p.o. daily, fluconazole 100 mg p.o. as directed, albuterol sulfate 2 puffs inhaled q.i.d. p.r.n., rosuvastatin 20 mg p.o. daily, Lamictal 200 mg p.o. daily, fluoxetine 80 mg p.o. daily, amlodipine 10 mg p.o. daily. ALLERGIES: COVID VACCINE, BACTRIM. SOCIAL HISTORY: He is a [facility] inmate at [facility], is a nonsmoker and nondrinker, non-substance abuser. FAMILY HISTORY: Significant for cardiovascular disease and diabetes. REVIEW OF SYSTEMS: As per HPI. PHYSICAL EXAMINATION: GENERAL: Very pleasant a 55-year-old -Guyanese gentleman, awake, alert, appropriate, in no acute distress. VITAL SIGNS: Temperature 36.6, pulse 104, respiratory rate 18, blood pressure 135/93. SKIN: Warm, dry, noncyanotic with scattered petechiae and ecchymoses encompassing his lower extremities bilaterally. HEENT: Atraumatic, normocephalic. Eyes: MAYCOL, EOMI. Nares patent without rhinorrhea or discharge. Throat clear. Tongue midline. Mucous membranes are moist. No buccal lesions or ulcerations. NECK: Supple without JVD or thyromegaly. HEART: Regular rate and rhythm. No clicks, rubs, murmurs or gallops. LUNGS: Clear to auscultation bilaterally. ABDOMEN: Soft, nontender, nondistended, without palpable hepatosplenomegaly. EXTREMITIES: No calf tenderness or swelling. No clubbing, cyanosis or edema. NEUROLOGIC: He is awake, alert and oriented x3. Cranial nerves are grossly intact. LABORATORY DATA: WBC count 5610, hemoglobin 11.5, platelet count 13,000. Coags are within normal limits. Sodium 130, potassium 4.0, chloride 98, carbon dioxide 26, creatinine 0.89, BUN 11, AST 45, ALT 99. IMPRESSION: 1. Idiopathic thrombocytopenic purpura. 2. Upper gastrointestinal bleeding attributable to gastritis. 3. Hypertension. PLAN: This very pleasant 55-year-old -[place] inmate presents to [facility] with a platelet count of 12,000. Underwent EGD a couple of days ago revealing no active bleeding, but gastritis. That said, I have been contacted in the past regarding this gentleman. He has had at least 2 courses of corticosteroids and last brief admission, he received immunoglobulin 1 gram/kg as well as high-dose dexamethasone for 4 days. Transient improvement, not surprisingly, now has relapsed. Thus, while in-house, we will proceed with another round of IVIG 1 gram/kg. I will schedule patient seen at [facility] and proceed with rituximab 375 mg/m2 weekly x4 as the next therapeutic step. If he fails to respond, we will then consider either subcutaneous or oral thrombopoietin agonist. Certainly splenectomy could also be entertained in this gentleman's case. As long as his platelets are heading in the right direction, he could be discharged back to the [facility] with close followup at [facility] thereafter. Thank you very much for allowing me to participate in his care. If you have any questions or concerns, please feel free to call me at any time. Job ID: [id number] [facility]
[2021-09-11] MEDS: NYSTATIN SUSP 500,000 U/5 ML UDC PO SCH ×3 (13:05→22:08)
--- NOTE | 2021-09-11 13:26 | Gastrointestinal Consultation ---
Date of Consultation September 11, 2021 Assessment & Plan (1) Melena: Resolved spontaneously, likely mucosal oozing in the setting of severe thrombocytopenia. H/H stable and no evidence of ongoing GI bleeding hence no plan for EGD. PO PPI daily for 4 weeks. Follow up with Hematology for ITP as managing this would be important to prevent rebleeding. Recall GI if needed. History of Present Illness Reason for Consultation: Black stool Attending Physician: Ronnell Marks DO History of Present Illness 55 years old male patient with HTN, DLP, admitted for concern for GI bleeding after recent EGD on 09/09 with empirical esophageal dilation by a 51 Fr Savary dilator. Patient reported black stool hence brought to the hospital, noted with ITP and PLT count of 12K. Hematology consulted and currently started on IVIG. He feels fine and denies any abdominal pain, nausea or vomiting. No BM since admission, No hematemesis. The hospitalist today already started him on solid diet and patient had no issues with it. Allergies Allergy/AdvReac Type Severity Reaction Status Date / Time sulfamethoxazole Allergy Unknown Unknown Verified 09/10/21 18:31 [From Bactrim] trimethoprim [From Bactrim] Allergy Unknown Unknown Verified 09/10/21 18:31 COVID-19 vaccine, AdvReac Intermediate ITP Verified 09/11/21 03:48 Ad26.COV2.S ([facility] Home Medications Medication Instructions Recorded Confirmed Type amlodipine 10 mg tablet 10 mg PO DAILY 07/29/21 09/10/21 History fluoxetine 20 mg capsule 80 mg PO DAILY 07/29/21 09/10/21 History lamotrigine 100 mg tablet 200 mg PO DAILY 07/29/21 09/10/21 History (Lamictal) rosuvastatin 20 mg tablet 20 mg PO HS 07/29/21 09/10/21 History acetaminophen 500 mg tablet 1,000 mg PO TID PRN 08/22/21 09/10/21 History (Acetaminophen Extra Strength) albuterol sulfate 90 mcg/actuation 2 puff INHALATION QID PRN 09/10/21 09/10/21 History aerosol inhaler fluconazole 100 mg tablet 100 mg PO UD 09/10/21 09/10/21 History (Diflucan) lisinopril 20 1 tab PO DAILY 09/10/21 09/10/21 History mg-hydrochlorothiazide 25 mg tablet nystatin 100,000 unit/mL oral 15 ml PO DAILY 09/10/21 09/10/21 History suspension Patient History Medical History Bipolar disorder HLD (hyperlipidemia) HTN (hypertension) Sarcoidosis Surgical History History of lung surgery Family History Other Diabetes Heart disease Social History Smoking Status: Never smoker Hx Alcohol Use: No Hx Substance Use: No Preferred Language: [place] Communication Ability: Effective Dermatology Sales Representative Required: No Beliefs That Will Affect Care: None Current Living Situation: Other Current Living Situation Comment: [facility] Feels Safe at Home: Yes Safety Concerns: Feels Safe At This Time Assistive Devices: None Review of Systems Constitutional: no fever, no chills, no fatigue and no weight loss Eyes: no eye pain and no worsening vision Ear, Nose, Mouth, Throat: no tinnitus, no dizziness, no nasal discharge and no epistaxis Respiratory: no cough, no dyspnea, no dyspnea on exertion and no wheezing Cardiovascular: no chest pain, no orthopnea, no palpitations and no edema Gastrointestinal: as per Subjective / HPI Musculoskeletal: no stiffness and no myalgia Neurologic: no localized weakness, no paralysis, no tremor(s) and no headache(s) Endocrine: no polydipsia and no polyuria Hematologic / Lymphatic: no easy bleeding and no night sweats Physical Exam Constitutional: + well hydrated, cooperative and comfortable Eyes: PERRL, conjunctivae normal, anicteric sclerae ENMT: external ear and nose normal, oropharynx normal Neck: normal visual inspection and trachea midline Respiratory: normal respiratory effort, lungs clear to auscultation Auscultation: no wheezes Cardiovascular: RRR, no murmur, no edema Gastrointestinal (Abdomen): normal bowel sounds, soft, nontender, no hepatosplenomegaly Musculoskeletal: no cyanosis or clubbing, extremities motor strength 5/5 Skin: no rashes, warm and dry Neurologic: awake; no focal motor deficits Motor/Sensory: no tremor Results & Data ([facility]) Vital Signs (Past 12 Hours) Vital Signs Temp Pulse Pulse Pulse Resp BP Pulse Ox 09/11/21 12:10 36.6 C 80 18 143/92 H 100 09/11/21 11:20 68 09/11/21 07:47 36.6 C 104 H 18 135/93 92 09/11/21 05:48 36.6 C 74 18 141/91 H 100 09/11/21 05:17 80 09/11/21 03:00 71 18 121/80 99 09/11/21 02:18 79 16 122/79 98 Laboratory Results Laboratory Results - last 24 hr 09/10/21 09/10/21 09/10/21 16:13 16:13 16:13 WBC 7.11 RBC 4.09 L Hgb 12.0 L Hct 34.6 L MCV 84.6 MCH 29.3 MCHC 34.7 RDW Std Deviation 45.9 RDW Coeff of Dianelys 15.0 H Plt Count 12 L* Immature Gran % (Auto) Neut % (Auto) Lymph % (Auto) Allen % (Auto) Eos % (Auto) Baso % (Auto) Neut # (Auto) Lymph # (Auto) Allen # (Auto) Eos # (Auto) Baso # (Auto) Immature Gran # (Auto) Platelet Estimate SIGNIFIC DECREASED Polychromasia PT 9.5 INR 0.9 APTT 23.9 PTT Ratio 0.9 Sodium Potassium Chloride Carbon Dioxide Anion Gap BUN Creatinine Est Cr Clr Drug Dosing Est GFR ( Amer) Est GFR (Non-Af Amer) BUN/Creatinine Ratio Glucose Estimat Average Glucose Hemoglobin A1c Calcium Magnesium Total Bilirubin AST ALT Alkaline Phosphatase Troponin I Total Protein Albumin Globulin Albumin/Globulin Ratio TSH Nasal Screen MRSA (PCR) POC Stool Occult Blood SARS-CoV-2, RNA, NAAT Blood Type A Negative Antibody Screen NEGATIVE 09/10/21 09/10/21 09/10/21 16:13 16:13 16:15 WBC RBC Hgb Hct MCV MCH MCHC RDW Std Deviation RDW Coeff of Dianelys Plt Count Immature Gran % (Auto) Neut % (Auto) Lymph % (Auto) Allen % (Auto) Eos % (Auto) Baso % (Auto) Neut # (Auto) Lymph # (Auto) Allen # (Auto) Eos # (Auto) Baso # (Auto) Immature Gran # (Auto) Platelet Estimate Polychromasia PT INR APTT PTT Ratio Sodium 136 Potassium 3.9 Chloride 102 Carbon Dioxide 26 Anion Gap 8 BUN 14 Creatinine 0.92 Est Cr Clr Drug Dosing 116.1 Est GFR ( Amer) 109.7 Est GFR (Non-Af Amer) 94.6 BUN/Creatinine Ratio 15.2 Glucose 106 H Estimat Average Glucose 143 Hemoglobin A1c 6.6 H Calcium 9.0 Magnesium 1.8 Total Bilirubin 0.4 AST 43 H ALT 106 H Alkaline Phosphatase 91 Troponin I < 0.03 Total Protein 7.3 Albumin 3.7 Globulin 3.6 Albumin/Globulin Ratio 1.0 TSH Nasal Screen MRSA (PCR) POC Stool Occult Blood SARS-CoV-2, RNA, NAAT Blood Type Antibody Screen 09/10/21 09/10/21 09/10/21 16:15 18:40 21:24 WBC RBC Hgb Hct MCV MCH MCHC RDW Std Deviation RDW Coeff of Dianelys Plt Count Immature Gran % (Auto) Neut % (Auto) Lymph % (Auto) Allen % (Auto) Eos % (Auto) Baso % (Auto) Neut # (Auto) Lymph # (Auto) Allen # (Auto) Eos # (Auto) Baso # (Auto) Immature Gran # (Auto) Platelet Estimate Polychromasia PT INR APTT PTT Ratio Sodium Potassium Chloride Carbon Dioxide Anion Gap BUN Creatinine Est Cr Clr Drug Dosing Est GFR ( Amer) Est GFR (Non-Af Amer) BUN/Creatinine Ratio Glucose Estimat Average Glucose Hemoglobin A1c Calcium Magnesium Total Bilirubin AST ALT Alkaline Phosphatase Troponin I Total Protein Albumin Globulin Albumin/Globulin Ratio TSH 1.331 Nasal Screen MRSA (PCR) POC Stool Occult Blood Positive A SARS-CoV-2, RNA, NAAT NEGATIVE Blood Type Antibody Screen 09/11/21 09/11/21 09/11/21 01:40 02:00 05:26 WBC 6.74 5.61 RBC 4.17 L 4.07 L Hgb 12.0 L 11.5 L Hct 35.2 L 34.8 L MCV 84.4 85.5 MCH 28.8 28.3 MCHC 34.1 33.0 RDW Std Deviation 46.1 47.2 H RDW Coeff of Dianelys 15.3 H 15.5 H Plt Count 10 L* 13 L* Immature Gran % (Auto) 0.4 0.4 Neut % (Auto) 49.6 57.6 Lymph % (Auto) 36.8 30.3 Allen % (Auto) 11.6 10.5 Eos % (Auto) 1.0 0.7 Baso % (Auto) 0.6 0.5 Neut # (Auto) 3.34 3.23 Lymph # (Auto) 2.48 1.70 Allen # (Auto) 0.78 H 0.59 Eos # (Auto) 0.07 0.04 Baso # (Auto) 0.04 0.03 Immature Gran # (Auto) 0.03 H 0.02 Platelet Estimate SIGNIFIC DECREASED SIGNIFIC DECREASED Polychromasia 1+ PT INR APTT PTT Ratio Sodium Potassium Chloride Carbon Dioxide Anion Gap BUN Creatinine Est Cr Clr Drug Dosing Est GFR ( Amer) Est GFR (Non-Af Amer) BUN/Creatinine Ratio Glucose Estimat Average Glucose Hemoglobin A1c Calcium Magnesium Total Bilirubin AST ALT Alkaline Phosphatase Troponin I Total Protein Albumin Globulin Albumin/Globulin Ratio TSH Nasal Screen MRSA (PCR) Positive A POC Stool Occult Blood SARS-CoV-2, RNA, NAAT Blood Type Antibody Screen 09/11/21 05:26 WBC RBC Hgb Hct MCV MCH MCHC RDW Std Deviation RDW Coeff of Dianelys Plt Count Immature Gran % (Auto) Neut % (Auto) Lymph % (Auto) Allen % (Auto) Eos % (Auto) Baso % (Auto) Neut # (Auto) Lymph # (Auto) Allen # (Auto) Eos # (Auto) Baso # (Auto) Immature Gran # (Auto) Platelet Estimate Polychromasia PT INR APTT PTT Ratio Sodium 130 L Potassium 4.0 Chloride 98 Carbon Dioxide 26 Anion Gap 6 BUN 11 Creatinine 0.89 Est Cr Clr Drug Dosing 120.0 Est GFR ( Amer) 113.1 Est GFR (Non-Af Amer) 97.6 BUN/Creatinine Ratio 12.4 Glucose 116 H Estimat Average Glucose Hemoglobin A1c Calcium 8.7 Magnesium Total Bilirubin 0.6 AST 45 H ALT 99 H Alkaline Phosphatase 88 Troponin I Total Protein 7.7 Albumin 3.7 Globulin 4.0 Albumin/Globulin Ratio 0.9 TSH Nasal Screen MRSA (PCR) POC Stool Occult Blood SARS-CoV-2, RNA, NAAT Blood Type Antibody Screen
[2021-09-12] MEDS: IMMUN GLOBG(IGG)/MALT/IGA OV50 100 ML IV SCH (02:00)
[2021-09-12] MEDS: IMMUN GLOBG(IGG)/MALT/IGA OV50 200 ML IV SCH ×5 (03:27→08:04)
[2021-09-12] MEDS: dexAMETHasone 4 MG TAB PO SCH (08:14)
[2021-09-12] MEDS: amLODIPine BESYLATE 5 MG TAB PO SCH (08:15)
[2021-09-12] MEDS: lisinopril 20 MG TAB PO SCH (08:15)
[2021-09-12] MEDS: FLUoxetine HCL 20 MG CAP PO SCH (08:15)
[2021-09-12] MEDS: FLUCONAZOLE 100 MG TAB PO SCH (08:16)
[2021-09-12] MEDS: NYSTATIN SUSP 500,000 U/5 ML UDC PO SCH ×4 (08:16→22:20)
[2021-09-12] MEDS: lamoTRIgine 100 MG TAB PO SCH (08:16)
[2021-09-12] MEDS: PANTOprazole 40 MG in SYRINGE 0 ML IV SCH ×2 (09:01→21:34)
--- NOTE | 2021-09-12 11:07 | Hospitalist Progress Note ---
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 past tobacco abuse Medical telemetry IV PPI GI consult Re: UGIB Follow H&H, transfuse PRBC if hemoglobin less than 7 and or for symptomatic anemia Hematology on case Re: Recurrent ITP causing UGIB Dr. Montgomery who recommends IVIG 1 g/kg daily for 2 consecutive days. (Of note, patient expressed hesitation about receiving additional steroid Rx following recent bout of oral thrush.) Will give Diflucan +- Nystatin SW/SW with next round of Decadron Check hemoglobin A1c DVT prophylaxis with SCDs Re: UGI B Full code Labs checked ROS-No Headache, No Visual Changes, No Nausea, No Vomiting, No Fever, No Chills, No Neck Pain or Stiffness, No Chest Pain, No Palpitations, No SOB, No HOLDER, No Cough, No Sputum, No Wheezing, No Abdominal Pain, No Diarrhea, No Hematemesis, No Hemoptysis, No Unexpected Weight Loss, No Flank pain, No Melena, No Hematochezia, No Frequency, No Urgency, No Burning, No Hematuria, No Rashes, No Diaphoresis. Appetite is Normal, weak Physical Exam Gen-AAO x 3, NAD, Afebrile Head-NCAT, EOMI, PERRLA, Anicteric Sclera, No Posterior Pharyngeal Erythema Neck-Supple, No JVD, No Thyromegaly, No Masses, No LAD, No Bruits Lungs-Clear to Auscultation Bilaterally, No Rales, No Rhonchi, No Wheezing, No Crepitus Chest-No S4, +S1, +S2, No S3, No Murmurs, No Rubs, No Gallops, No Ectopy Abdomen-Soft, Bowel Sounds Present, Non Tender, Non Distended, No Hepatomegaly, No Splenomegaly, No Palpable Masses, No Rebound, No Rigidity, No Guarding Musculoskeletal-Full Range of Motion Bilaterally, No CVAT Extremities-No Cyanosis, No Clubbing, No Edema Nuero-Cranial Nerves II-XII grossly intact, Motor WNL, DTRs WNL, Strength WNL, Non Focal Psych-Normal Mood Admission and Anticipated Discharge Date Admission Date: September 10, 2021 Subjective Patient seen, feels great today Results & Data Results & Data ([facility]) Vital Signs (Past 12 Hours) Vital Signs Temp Pulse Pulse Pulse Resp BP BP 09/12/21 07:25 36.6 C 97 H 20 157/95 H 09/12/21 07:20 96 H 09/12/21 06:07 36.7 C 97 H 18 142/93 H 09/12/21 05:00 36.5 C 95 H 16 149/86 H 09/12/21 03:25 36.5 C 87 18 146/71 H 09/12/21 02:51 36.5 C 80 16 133/81 09/12/21 02:00 36.5 C 87 16 142/85 H 09/11/21 23:05 36.7 C 93 H 18 152/91 H Pulse Ox 09/12/21 07:25 100 09/12/21 07:20 09/12/21 06:07 96 09/12/21 05:00 95 09/12/21 03:25 96 09/12/21 02:51 96 09/12/21 02:00 96 09/11/21 23:05 96
--- NOTE | 2021-09-12 17:40 | Electrocardiogram Report ---
Test Reason : Blood Pressure : / mmHG Vent. Rate : 105 BPM Atrial Rate : 105 BPM P-R Int : 178 ms QRS Dur : 080 ms QT Int : 356 ms P-R-T Axes : 050 -04 022 degrees QTc Int : 470 ms Poor data quality, interpretation may be adversely affected Sinus tachycardia Possible Left atrial enlargement Borderline ECG When compared with ECG of 22-AUG-2021 10:22, No significant change was found Confirmed by Miguelito Kothari ([id number]) on 09/12/2021 5:40:36 PM Referred By: Kaylee SCI Confirmed By:Miguelito Kothari
[2021-09-12] MEDS: PROMETHAZINE HCL 12.5 MG in SODIUM CHLORIDE 0.9% 50 ML IV PRN (22:16)
[2021-09-13] MEDS: lamoTRIgine 100 MG TAB PO SCH (08:25)
[2021-09-13] MEDS: dexAMETHasone 4 MG TAB PO SCH (08:25)
[2021-09-13] MEDS: PANTOprazole 40 MG in SYRINGE 0 ML IV SCH (08:25)
[2021-09-13] MEDS: FLUoxetine HCL 20 MG CAP PO SCH (08:26)
[2021-09-13] MEDS: amLODIPine BESYLATE 5 MG TAB PO SCH (08:26)
[2021-09-13] MEDS: NYSTATIN SUSP 500,000 U/5 ML UDC PO SCH ×2 (08:26→12:14)
[2021-09-13] MEDS: lisinopril 20 MG TAB PO SCH (08:26)
[2021-09-13] MEDS: FLUCONAZOLE 100 MG TAB PO SCH (08:26)
[2021-09-13 08:32] LABS: Nucleated RBC # (auto) 0.08 K/uL (0-0); Nucleated RBC % (auto) 0.4 %
[2021-09-13 09:02] LABS: Albumin Globulin Ratio 0.5 (0.9-2); Albumin Level 3.2 gm/dl (3.4-5.0); BUN Creatinine Ratio 20.7 (10-20); Bilirubin,Total 0.5 mg/dl (0.2-1.0); Calcium 8.6 mg/dl (8.5-10.1); Creatinine Clr Calc Pharmacy 122.1 ml/min; Est GFR (African American) 114.2 ml/min; Est GFR (Non-African American) 98.5 ml/min; Globulin 6.4 gm/dl (2.5-4.0); Total Protein 9.6 gm/dl (6.0-8.3)
[2021-09-13 09:16] LABS: Basophils # (auto) 0.02 K/uL (0-0.2); Basophils % (auto) 0.1 %; Hematocrit (blood only) 32.2 % (42-52); Hemoglobin 10.8 g/dL (14.0-18.0); Immature Granulocytes % (auto) 0.5 %; Lymphocytes # (auto) 1.48 K/uL (1.2-3.4); Lymphocytes % (auto) 7.8 %; Mean Corpuscular Hgb Conc 33.5 g/dL (32-36); Mean Corpuscular Volume 86.3 fL (80-100); Mean Platelet Volume 9.1 fL (7.4-10.4); Monocytes # (auto) 1.04 K/uL (0.11-0.59); Monocytes % (auto) 5.5 %; Neutrophils # (auto) 16.42 K/uL (1.4-6.5); Neutrophils % (auto) 86.1 %; Platelet Count 224 K/uL (130-400); Platelet Estimate Normal (Normal); RDW Standard Deviation 49.6 fL (36.4-46.3); Red Blood Count 3.73 M/uL (4.7-6.1); White Blood Count 19.06 K/uL (4.8-10.8)
--- NOTE | 2021-09-13 11:46 | Discharge Summary ---
Date of Service September 13, 2021 Admission HPI Per Admitting Provider History obtained from patient and records. Medical history significant for hypertension, hyperlipidemia, mood disorder, chronic anemia (baseline hemoglobin 13), drug-induced ITP ( J&J COVID-19 vaccine), past tobacco abuse. Last confinement 3 weeks ago for severe thrombocytopenia following suspected ITP secondary to J&J COVID-19 vaccine which patient received June 2021. Patient presented with mucosal bleed. Platelet counts improve with Decadron and IVIg course. Upon return to correctional facility, patient developed oral thrush with dysphagia symptoms a week later. Thrush responded to antifungal regimen initiated outpatient. Few days ago, patient noted new bruising and bleeding spots on the arms and legs. Patient underwent outpatient EGD at [facility] yesterday for dysphagia complaints. No endoscopic esophageal abnormality. Esophagus dilated during procedure. Gastritis noted on endoscopy. This afternoon, patient noted melanotic stools without abdominal pain, chest pain, S OB. Mild right-sided headache symptoms. No OTC NSAID intake. Patient brought to the ER for evaluation. 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 Admission Exam Per Admitting Provider GENERAL: Comfortable, obese, pleasant no respiratory distress SKIN: Petechial and purpuric lesions over the extremities, pallor, warm HEENT: Partial alopecia, bespectacled, pale palpebral conjunctivae, no ptosis, dry buccal mucosa NECK : Supple, short neck, no tenderness CHEST : CTA, no tenderness HEART : RRR, no obvious murmurs ABDOMEN: Some distention, nontender EXTREMITIES : No LE swelling/tenderness, no other conspicuous deformities noted NEUROLOGIC : Coherent, no facial asymmetry, no other gross focality Principal Diagnosis UGIB (upper gastrointestinal bleed): In the setting of drug induced ITP (J and J COVID-19 booster received June 2021) Minimal hemoglobin drop from baseline Gastritis on recent EGD hypertension, slight elevated hyperlipidemia, on statin Rx mood disorder, stable Steroid-induced hyperglycemia rule out DM Recent oral thrush improved on outpatient antifungal regimen Abnormal CT head past tobacco abuse Discharge Exam See Below Discharge Data Allergies Allergy/AdvReac Type Severity Reaction Status Date / Time sulfamethoxazole Allergy Unknown Unknown Verified 09/10/21 18:31 [From Bactrim] trimethoprim [From Bactrim] Allergy Unknown Unknown Verified 09/10/21 18:31 COVID-19 vaccine, AdvReac Intermediate ITP Verified 09/11/21 03:48 Ad26.COV2.S ([facility] Consultations 09/10/21 21:52 ED Decision to Admit Stat 09/10/21 23:57 Consult Gastroenterology Routine Consult Hematology Routine Ordered Studies 09/10/21 18:28 CT abd pelvis IV con only Stat 09/10/21 18:30 CT head/brain wo con Stat Current Diagnoses Melena (09/10/21) Gastrointestinal hemorrhage, unspecified (09/10/21) Allergies sulfamethoxazole [From Bactrim] Allergy (Unknown, Verified 09/10/21 18:31) Unknown trimethoprim [From Bactrim] Allergy (Unknown, Verified 09/10/21 18:31) Unknown COVID-19 vaccine, Ad26.COV2.S ([facility] Adverse Reaction (Intermediate, Verified 09/11/21 03:48) ITP Height/Weight/Isolation Height 5 ft 11 in Weight 106.8 kg Isolation Type Contact Precautions Chemistry 09/13/21 08:11 Sodium 133 L Potassium 4.0 Chloride 102 Carbon Dioxide 25 Anion Gap 6 BUN 18 Creatinine 0.87 Glucose 156 H Hospital Course (1) UGIB (upper gastrointestinal bleed): In the setting of drug induced ITP (J and J COVID-19 booster received June 2021) Minimal hemoglobin drop from baseline Gastritis on recent EGD hypertension, slight elevated hyperlipidemia, on statin Rx mood disorder, stable Steroid-induced hyperglycemia rule out DM Recent oral thrush improved on outpatient antifungal regimen Abnormal CT head, 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 past tobacco abuse DC to jail, Decadron 2 more days, f/u c Dr Montgomery, GI Bleed resolved Hematology on case Re: Recurrent ITP causing UGIB Dr. Montgomery recommended IVIG 1 g/kg daily for 2 consecutive days. Will give Diflucan + Nystatin SW/SW with next round of Decadron ROS-No Headache, No Visual Changes, No Nausea, No Vomiting, No Fever, No Chills, No Neck Pain or Stiffness, No Chest Pain, No Palpitations, No SOB, No HOLDER, No Cough, No Sputum, No Wheezing, No Abdominal Pain, No Diarrhea, No Hematemesis, No Hemoptysis, No Unexpected Weight Loss, No Flank pain, No Melena, No Hematochezia, No Frequency, No Urgency, No Burning, No Hematuria, No Rashes, No Diaphoresis. Appetite is Normal, weak Physical Exam Gen-AAO x 3, NAD, Afebrile Head-NCAT, EOMI, PERRLA, Anicteric Sclera, No Posterior Pharyngeal Erythema Neck-Supple, No JVD, No Thyromegaly, No Masses, No LAD, No Bruits Lungs-Clear to Auscultation Bilaterally, No Rales, No Rhonchi, No Wheezing, No Crepitus Chest-No S4, +S1, +S2, No S3, No Murmurs, No Rubs, No Gallops, No Ectopy Abdomen-Soft, Bowel Sounds Present, Non Tender, Non Distended, No Hepatomegaly, No Splenomegaly, No Palpable Masses, No Rebound, No Rigidity, No Guarding Musculoskeletal-Full Range of Motion Bilaterally, No CVAT Extremities-No Cyanosis, No Clubbing, No Edema Nuero-Cranial Nerves II-XII grossly intact, Motor WNL, DTRs WNL, Strength WNL, Non Focal Psych-Normal Mood Total Time Total Time Spent Total Time Spent (In Minutes): 45 mins Total Time Includes: Examination of the Patient, Discharge Planning, Medication Reconciliation and Communication With Other Providers Discharge Plan Discharge Items Patient Disposition: Correctional Facility Reason For Visit: UGIB Discharge Diagnosis: UGIB (upper gastrointestinal bleed): In the setting of drug induced ITP (J and J COVID-19 booster received June 2021) Minimal hemoglobin drop from baseline Gastritis on recent EGD hypertension, slight elevated hyperlipidemia, on statin Rx mood disorder, stable Steroid-induced hyperglycemia Recent oral thrush improved on outpatient antifungal regimen past tobacco abuse Condition on Discharge: Good Activity: Resume your previous activity Lifting: Gradually increase as tolerated Bathing: No limitations Exercise/Sports: Gradually increase as tolerated Driving/Machine Use: No limitations Weightbearing: Full weightbearing Non-emergency contact: Primary Care Provider and Specialist Call non-emergency contact if: you have any medication questions Follow-up/Referrals: Ac Montgomery DO [Physician] - (Follow up with Dr Montgomery in the Office, Plan to start Rituxan soon) Kaylee HOLDER [Primary Care Provider] - Diet: Regular Addtl Attending Provider Instructions: Follow up with Dr Montgomery Pending Studies at Discharge: No Stand-Alone Forms: My [facility] Skilled Items Patient informed of condition?: Yes Discharge Level of Care: Other Communicable Disease: No Discharge Prognosis: Improving Lines: None Urinary Catheter: No Medications and DC Order Prescriptions: New fluconazole 100 mg Tablet 100 mg PO DAILY Qty: 5 RF: 0 nystatin 100,000 unit/mL Suspension 15 ml PO QID Qty: 300 RF: 0 lisinopril 20 mg Tablet 20 mg PO QAM Qty: 30 RF: 0 dexamethasone 4 mg Tablet 40 mg PO DAILY Qty: 3 RF: 0 Continued amlodipine 10 mg Tablet 10 mg PO DAILY RF: 0 fluoxetine 20 mg Capsule 80 mg PO DAILY RF: 0 lamotrigine [Lamictal] 100 mg Tablet 200 mg PO DAILY RF: 0 rosuvastatin 20 mg Tablet 20 mg PO HS RF: 0 albuterol sulfate 90 mcg/actuation Hfa Aerosol Inhaler 2 puff INHALATION QID PRN (Reason: Shortness Of Breath) RF: 0 acetaminophen [Acetaminophen Extra Strength] 500 mg Tablet 1,000 mg PO TID PRN (Reason: Pain) RF: 0 Discontinued lisinopril-hydrochlorothiazide 20-25 mg Tablet 1 tab PO DAILY RF: 0 nystatin [Mycostatin] 100,000 unit/mL Suspension 15 ml PO DAILY RF: 0 fluconazole [Diflucan] 100 mg Tablet 100 mg PO UD RF: 0 Discharge Orders: Discharge Order (Routine); Ordered 09/13/21 Ordered By: Ronnell Ch/Other Patient Handouts: A1C, 5 Steps for Eating Healthier Admission Data Admit Date/Time: 09/10/21 23:01 Attending Provider: Ronnell Marks Admit Provider: Tong Hernandez Primary Care Provider: Kaylee HOLDER Other Providers: Tong Hernandez ; Amita Rowe ; Coby Lafleur ; Ellie Wolf ; Yessica Tinajero ; Ace Weeks ; Shauna Dawn ; Jarod Hough ; Caleb Elizalde ; Monica Billings ; Evangelina Juares ; Sosa Hill ; Keke Livingston ; Branden Man ; Ac Montgomery V.
== END 2021-09-13 12:54 | DRG 813 ==
LOC: ED 15:19 → EDINP 23:01 → 2W 23:59